=== PATIENT | male | born 1945 | race Caucasian/White ===

== ENCOUNTER 2023-04-13 07:15 | Outpatient (OUT) | payer MEDICARE, SELFPAY ==
[2023-04-13 07:37] LABS: Basophils Absolute Auto 0.1 10^3/uL (0.0-0.1); Basophils Percent Auto 0.9 % (0.2-2.0); Eosinophils Absolute Auto 0.3 10^3/uL (0.0-0.7); Hematocrit 41.4 % (42.0-54.0); Hemoglobin 13.2 g/dL (14.0-18.0); Immature Granulocytes Abs Auto 0.01 10^3/uL (0.00-0.03); Immature Granulocytes Pct Auto 0.2 % (0.0-0.5); Lymphocytes Absolute Auto 1.6 10^3/uL (1.2-3.8); Lymphocytes Percent Auto 28.2 % (20.5-60.0); Mean Corpuscular HGB Conc 31.9 g/dL (29.9-35.2); Mean Corpuscular Hemoglobin 30.1 pg (25.9-34.0); Mean Corpuscular Volume 94.3 fL (80.0-94.0); Mean Platelet Volume 9.6 fL (9.5-13.5); Monocytes Absolute Auto 0.6 10^3/uL (0.3-0.8); Monocytes Percent Auto 10.9 % (1.7-12.0); Neutrophils Absolute Auto 3.2 10^3/uL (1.4-6.5); Neutrophils Percent Auto 54.8 % (43.0-75.0); Platelet Count 241 10^3/uL (150-450); Red Blood Count 4.39 10^6/uL (4.70-6.10); Red Cell Distribution Width 13.2 % (11.0-15.0); White Blood Count 5.8 10^3/uL (4.0-11.0)
[2023-04-13 08:37] LABS: Alanine Aminotransferase 29 U/L (16-63); Albumin Globulin Ratio 1.1; Albumin Level 3.4 g/dL (3.4-5.0); Alkaline Phosphatase 71 U/L (46-116); Anion Gap 10.5; Aspartate Amino Transferase 24 U/L (15-37); BUN Creatinine Ratio 11.8; Bilirubin Total 0.7 mg/dL (0.2-1.0); Calcium 8.7 mg/dL (8.5-10.1); Carbon Dioxide 28.8 mmol/L (21.0-32.0); Chloride 106 mmol/L (98-107); Chol HDL Ratio 3.1; Cholesterol 147 mg/dL (<=200); Estimated GFR (African America >60 (>=60); Estimated GFR (Non-African Ame >60 (>=60); Globulin 3.2 g/dL; Glucose 90 mg/dL (74-106); HDL Cholesterol 48 mg/dL (40-60); LDL Cholesterol Calculated 85.4 mg/dL; Potassium 4.3 mmol/L (3.5-5.1); Sodium 141 mmol/L (136-145); Total Protein 6.6 g/dL (6.4-8.2); Triglycerides 68 mg/dL (<=150); VLDL CHOLESTEROL 13.6 mg/dL
[2023-04-14 08:10] LABS: PSA, Free 1.24 ng/mL; Prostate Specific Ag 4.3 ng/mL (0.0-4.0)
[2023-04-15 15:07] LABS: Immunoglobulin A, Qn, Serum 158 mg/dL (61-437); Immunoglobulin G, Qn, Serum 812 mg/dL (603-1613); Immunoglobulin M, Qn, Serum 53 mg/dL (15-143)
== END 2023-04-13 07:16 | disposition home or self-care (01) ==
LOC: LAB 07:15
PROVIDERS: PCP Internal Medicine; Visit Provider Internal Medicine
DX: E78.2 Mixed hyperlipidemia (principal); C80.1 Malignant (primary) neoplasm, unspecified; C79.51 Secondary malignant neoplasm of bone; M53.3 Sacrococcygeal disorders, not elsewhere classified; I50.22 Chronic systolic (congestive) heart failure
CPT/HCPCS: 36415; 80053; 80061; 82784; 84153; 84154; 85025; 86334

== ENCOUNTER 2023-04-30 07:36 | Outpatient (RCR) | payer MEDICARE, SELFPAY ==
[2023-04-16 16:06] LABS: Lactate Dehydrogenase 203 U/L (85-227)
[2023-04-17 19:07] LABS: Albumin 3.9 g/dL (2.9-4.4); Alpha-1-Globulin 0.2 g/dL (0.0-0.4); Alpha-2-Globulin 0.6 g/dL (0.4-1.0); Free Kappa Lt Chains,S 21.4 mg/L (3.3-19.4); Free Lambda Lt Chains,S 15.2 mg/L (5.7-26.3); Gamma Globulin 0.7 g/dL (0.4-1.8); Immunoglobulin A, Qn, Serum 157 mg/dL (61-437); Immunoglobulin G, Qn, Serum 788 mg/dL (603-1613); Immunoglobulin M, Qn, Serum 43 mg/dL (15-143); Kappa/Lambda Ratio,S 1.41 (0.26-1.65); Protein, Total 6.2 g/dL (6.0-8.5)
== END 2023-05-09 23:59 | disposition home or self-care (01) ==
LOC: INF 07:36
PROVIDERS: PCP Internal Medicine; Visit Provider Internal Medicine Hematology & Oncology
DX: S34.13 Other and unspecified injury to sacral spinal cord (principal); C41.4 Malignant neoplasm of pelvic bones, sacrum and coccyx; R97.20 Elevated prostate specific antigen [PSA]; M89.9 Disorder of bone, unspecified
CPT/HCPCS: 36415; 82784; 83521; 83615; 84155; 84165; 86334; G0463

== ENCOUNTER 2024-05-27 08:53 | Outpatient (OUT) | payer MEDICARE, SELFPAY ==
--- OUTSIDE RECORDS SUMMARY | 2024-05-27 08:59 | XMS_ITS | CCD ---
Author Organization [facility] Care Team Providers Care Pay Station Attendant Name Role Phone SHAIKH Gilmar BONILLA Admitting Unavailable SHAIKH Gilmar BONILLA Attending Unavailable SHAIKH BONILLA H Consulting Unavailable SHAIKH Gilmar BONILLA Admitting Unavailable SHAIKH Gilmar BONILLA Attending Unavailable SHAIKH BONILLA H Consulting Unavailable Nuvia Willis Unavailable Chad BLUM, Primary Care Provider [phone] MD Rohan Black Attending Provider MD Modesta Bonilla Primary Care Provider Shaik Bonilla MDh Primary Care Provider Chris Quinones MD Primary Care Provider [phone] Andreea HOPSON, Mary Unavailable Chad BLUM, Byers Primary Care Provider Andreea APPEALS COORDINATOR-Mary BRODERICK Primary Care Prov ider NESSA PANTOJA Referring Unavailable MARY DORAN Primary Care Unavaila ble Shaikh Bonilla Primary Care Unavailable Shobha Lawson Attending Unavailable Shobha Lawson Admitting Unavailable Andreea CRIMINAL JUSTICE PROGRAM DIRECTORMary Unavailable [phone] SHARLENE CHILDRESS Attending Unavailable SHAIKH BONILLA Attending Unavailable MARY DORAN Attending UnavailMARY Choudhary Attending UnavailROHAN Husain Attending Unavailable ROHAN BLACK Referring Unavailable SHAIKH BONILLA Primary Care Unavailable SHOBHA LAWSON Attending Unavailable ROHAN BLACK Referring Unavailable MARY DORAN Primary Care Unavailabl e Medications Current Medications Medication Drug Class(es) Dates Sig (Normalized) Sig (Original) aspirin 81 mg delayed release oral tablet (15 sources) Platelet Aggregation Inhibitor, Nonsteroidal Anti-inflammatory Drug Start: 04-25-2023 End: 07-24-2023 take 1 tablet by mouth once daily Aspirin 81 mg tablet,delayed release (DR/EC) Active 1 TAB PO Daily May 09, 2023 12:00am FreeTextSi tablet Orally Once a day; Note: Source Status: Taking; Provider: Alba Pedersen ( ) atorvastatin 40 mg oral tablet (17 sources) HMG-CoA Reductase Inhibitor Start: 04-25-2023 End: 09-23-2024 take 1 tablet by mouth once daily atorvastatin (Lipitor) 40 MG tablet Indications: Mixed hyperlipidemia (CMS/HCC) Take 1 tablet (40 mg) by mouth Daily 90 tablet 1 09/23/2023 Active carvedilol 25 mg oral tablet (18 sources) alpha-Adrenergic Timothy, beta-Adrenergic Timothy Start: 04-25-2023 End: 09-23-2024 take 1 tablet by mouth in the morning carvedilol (Coreg) 25 MG tablet Indications: Chronic bilateral low back pain with bilateral sciatica , Chronic systolic heart failure (CMS/HCC) , Cerebrovascular accident (CVA), unspecified mechanism (CMS/HCC) , Primary hypertension (CMS/HCC) Take 1 tablet (25 mg) by mouth in the morning and 1 tablet (25 mg) in the evening. Take with meals. 180 tablet 1 07/03/2023 Active End: 09-24-2023 take 0.5 tablet by mouth every twelve hours carvedilol (Coreg) 25 mg tablet Take 0.5 tablets (12.5 mg) by mouth every 12 hours. 09/24/2023 Discontinued (Dose adjustment) clopidogrel 75 mg oral tablet (15 sources) P2Y12 Platelet Inhibitor Start: 04-25-2023 End: 09-23-2024 take 1 tablet by mouth once daily Clopidogrel 75 mg tablet Active 1 TAB PO Daily May 09, 2023 12:00am FreeTextSi tablet Orally Once a day; Note: Source Status: Taking; Provider: Alba Pedersen ( ) lidocaine 0.05 mg/mg medicated patch (2 sources) Antiarrhythmic, Amide Local Anesthetic Start: 06-05-2022 Lidocaine 5 % 1 patch remove after 12 hours Externally Once a day for 15 days May, Active omeprazole 20 mg delayed release oral capsule (14 sources) Proton Pump Inhibitor Start: 10-09-2023 End: 10-03-2024 take 1 capsule by mouth before mealtime omeprazole (PriLOSEC) [address] capsule Indications: Gastroesophageal reflux disease without esophagitis Take 1 capsule (20 mg) by mouth in the morning. Take before meals. Do not crush or chew.. 90 capsule 1 04/06/2024 10/03/2024 Active Start: 04-25-2023 End: 07-24-2023 take 1 capsule by mouth before mealtime omeprazole (PriLOSEC) [address] capsule Indications: Gastroesophageal reflux disease without esophagitis Take 1 capsule (20 mg) by mouth in the morning. Take before meals. Do not crush or chew.. 90 capsule 0 04/25/2023 07/24/2023 Active pregabalin 150 mg oral capsule (18 sources) Start: 02-19-2024 End: 02-18-2025 take 1 capsule by mouth in the morning pregabalin (Lyrica) 150 MG capsule Indications: Polyneuropathy Take 1 capsule (150 mg) by mouth in the morning and 1 capsule (150 mg) before bedtime. 60 capsule 2 02/19/2024 02/18/2025 Active Start: 04-18-2023 End: 02-12-2024 take 1 capsule by mouth in the morning pregabalin (Lyrica) 150 MG capsule Indications: Chronic bilateral low back pain with bilateral sciatica Take 1 capsule (150 mg) by mouth in the morning and 1 capsule (150 mg) before bedtime. 60 capsule 2 10/07/2023 02/12/2024 Discontinued (Med list cleanup) End: 02-28-2024 take 1 capsule by mouth three times daily pregabalin (Lyrica) 100 mg capsule Take 1 capsule (100 mg) by mouth 3 times a day. 02/28/2024 Discontinued (Therapy completed) End: 09-24-2023 take 1 capsule by mouth twice daily pregabalin (Lyrica) 150 mg capsule Take 1 capsule (150 mg) by mouth 2 times a day. 09/24/2023 Discontinued (Dose adjustment) sacubitril 24 mg / valsartan 26 mg oral tablet (17 sources) Angiotensin 2 Receptor Timothy Start: 05-09-2023 take 1 tablet by mouth twice daily Sacubitril-Valsartan 24-26 mg tablet Active 1 TAB PO Twice daily May 09, 2023 12:00am Start: 04-25-2023 End: 07-24-2023 take 1 tablet by mouth in the morning sacubitril-valsartan (Entresto) 49-51 MG tablet Indications: Chronic systolic heart failure (CMS/HCC) Take 1 tablet by mouth in the morning and 1 tablet before bedtime. 180 tablet 04/25/2023 Active take 1 tablet by fernando th twice daily sacubitriL-valsartan (Entresto) 49-51 mg tablet Take 1 tablet by mouth 2 times a day. Active End: 09-24-2023 take 1 tablet by mouth once daily sacubitriL-valsartan (Entresto) 49-51 mg tablet Take 1 tablet by mouth once daily. 09/24/2023 Discontinued (Dose adjustment) take 1 tablet by fernando th twice daily Sacubitril-Valsartan 49-51 MG 1 tablet Orally Twice a day Active Completed/Discontinued Medications Medication Drug Class(es) Dates Sig (Normalized) Sig (Original) gabapentin 100 mg oral capsule (6 sources) Anti-epileptic Agent Start: 02-12-2024 End: 02-19-2024 take 2 capsules by mouth in the morning gabapentin (Neurontin) 100 MG capsule Indications: Chronic bilateral low back pain with bilateral sciatica Take 2 capsules (200 mg) by mouth in the morning and 2 capsules (200 mg) before bedtime. 360 capsule 02/12/2024 02/19/2024 Discontinued (Ineffective) End: 02-12-2024 take 1 capsule by mouth three times daily gabapentin (Neurontin) 100 mg capsule Take 1 capsule (100 mg) by mouth 3 times a day. Active Problems Active Problems Problem Classification Problem Date Documented Date Episodic/Chronic Acute cerebrovascular disease (10 sources) Cerebrovascular accident; Translations: [Cerebral infarction, unspecified] Onset: 09-26-2018 04-02-2023 Chronic Conduction disorders (17 sources) Automatic implantable cardiac defibrillator in situ; Translations: [Presence of automatic (implantable) cardiac defibrillator] Onset: 01-21-2019 04-02-2023 Chronic Congestive heart failure; nonhypertensive (20 sources) Chronic systolic heart failure; Translations: [Chronic systolic (congestive) heart failure] Onset: 03-19-2023 03-19-2023 Chronic Coronary atherosclerosis and other heart disease (20 sources) Coronary arteriosclerosis; Translations: [Atherosclerotic heart disease of [place] coronary artery without angina pectoris] Onset: 03-19-2023 03-19-2023 Chronic Disorders of lipid metabolism (20 sources) Mixed hyperlipidemia; Translations: [Mixed hyperlipidemia] Onset: 03-19-2023 03-19-2023 Chronic Esophageal disorders (2 sources) Gastroesophageal reflux disease without esophagitis; Translations: [Gastro-esophageal reflux disease without esophagitis] 04-25-2023 Chronic Essential hypertension (12 sources) Hypertensive disorder; Translations: [Essential (primary) hypertension] Onset: 04-02-2023 04-02-2023 Chronic Occlusion or stenosis of precerebral arteries (9 sources) Bilateral stenosis of carotid arteries; Translations: [Occlusion and stenosis of bilateral carotid arteries] Onset: 01-21-2019 04-02-2023 Chronic Other nervous system disorders (2 sources) Idiopathic peripheral neuropathy; Translations: [Hereditary and idiopathic neuropathy, unspecified] Chronic Other nervous system disorders (8 sources) Polyneuropathy; Translations: [Polyneuropathy, unspecified] Onset: 02-12-2024 02-12-2024 Chronic Other nutritional; endocrine; and metabolic disorders (4 sources) Overweight in adulthood with body mass index of 25 or more but less than 30; Translations: [Body mass index (BMI) 27.0-27.9, adult] Onset: 09-24-2023 09-24-2023 Episodic Other screening for suspected conditions (not mental disorders or infectious disease) (11 sources) Raised prostate specific antigen; Translations: [Elevated prostate specific antigen [PSA]] Onset: 04-17-2023 04-17-2023 Episodic Pulmonary heart disease (1 source) Pulmonary hypertension; Translations: [Pulmonary hypertension, unspecified] Onset: 05-14-2024 05-14-2024 Chronic Substance-related disorders (7 sources) Smoker; Translations: [Nicotine dependence, unspecified, uncomplicated] Onset: 09-24-2023 09-24-2023 Chronic Unclassified (1 source) Low back pain, unspecified; Translations: [Low back pain, unspecified] Onset: 09-24-2018 Past or Other Problems Problem Classification Problem Date Documented Da te Episodic/Chronic Coronary atherosclerosis and other heart disease (2 sources) Presence of aortocoronary bypass graft; Translations: [Presence of aortocoronary bypass graft] Onset: 03-19-2023 Episodic Mood disorders (9 sources) Mood disorders Onset: 04-02-2023 04-02-2023 Other diseases of kidney and ureters (9 sources) Cyst of kidney; Translations: [Cyst of kidney, acquired] Onset: 02-01-2020 04-02-2023 Episodic Other nutritional; endocrine; and metabolic disorders (2 sources) Body mass index (BMI) 27.0-27.9, adult; Translations: [Body mass index (BMI) 27.0-27.9, adult] Onset: 09-24-2023 Episodic Spondylosis; intervertebral disc disorders; other back problems (20 sources) Ankylosis of sacroiliac joint; Translations: [Sacrococcygeal disorders, not elsewhere classified] Onset: 04-02-2023 04-17-2023 Episodic Unclassified (3 sources) Onset: 03-19-2023 Resolved: 09-24-2023 03-19-2023 Results Test Name Value Interpretation Reference Range Facil ity ECG 12 [place] 02-28-2024 [facility] Work Phone: ECG 12 [place] 03-19-2023 Normal sinus rhythm Ventricular paced rhythm Ventricular pacing creates conduction artifact. QTc 416 ms [facility] Work Phone: URINE T PROTEIN CREAT RATIOo n 03-29-2022 Protein (U) [Mass/Vol] 24.9 mg/dL Critically high <=12.0 [facility] Comment on above: Performed By: #### U RTPCR #### [facility] [address] [address] [address] Hamlet Sun UR PROT CREAT RAT 0.19 Normal [facility] Comment on above: Performed By: #### U RTPCR #### [facility] [address] [address] [address] Hamlet Sun URINE CREAT 132.48 mg/dL Normal 20.00-300.00 [facility] Comment on above: Performed By: #### U RTPCR #### [facility] [address] [address] [address] Hamlet Sun CBC AUTO DIFFon 03-28-2022 BASO # 0.0 103/ul Normal 0.0-0.1 [facility] Comment on above: Performed By: #### C BC #### [facility] [address] [address] [address] Hamlet Sun Basophils/100 WBC (Bld) 0.8 % Normal 0.2-2.0 [facility] Comment on above: Performed By: #### C BC #### [facility] [address] [place] [address] Dr. Hamlet Sun EO # 0.2 103/ul Normal 0.0-0.7 [facility] Comment on above: Performed By: #### C BC #### [facility] [address] [address] [address] Hamlet Sun Eosinophils/100 WBC (Bld) 4.3 % Normal 0.9-7.0 [facility] Comment on above: Performed By: #### C BC #### [facility] [address] [address] [address] Hamlet Sun Erythrocyte distribution width (RBC) [Ratio] 13.9 % Normal 11.0-15.0 [facility] Comment on above: Performed By: #### C BC #### [facility] [address] [address] [address] Hamlet Sun Hematocrit (Bld) [Volume fraction] 39.5 % Critically low 42.0-54.0 [facility] Comment on above: Performed By: #### C BC #### [facility] [address] [place] [address] Dr. Hamlet Sun Hemoglobin (Bld) [Mass/Vol] 12.7 g/dL Critically low 14.0-18.0 [facility] Comment on above: Performed By: #### C BC #### [facility] [address] [place] [address] Dr. Hamlet Sun IG # 0.01 10e3/ul Normal 0.00-0.03 [facility] Comment on above: Performed By: #### C BC #### [facility] [address] [place] [address] Dr. Hamlet Sun IG % 0.2 % Normal 0.0-0.5 [facility] Comment on above: Performed By: #### C BC #### [facility] [address] [place] [address] Dr. Hamlet Sun LYMPH # 1.2 103/ul Normal 1.2-3.8 [facility] Comment on above: Performed By: #### C BC #### [facility] [address] [place] [address] Dr. Hamlet Sun Lymphocytes/100 WBC (Bld) 22.8 % Normal 20.5-60.0 [facility] Comment on above: Performed By: #### C BC #### [facility] [address] [place] [address] Dr. Hamlet Sun MANUAL DIFF REQ NO Normal [facility] Comment on above: Performed By: #### C BC #### [facility] [address] [place] [address] Dr. Hamlet Sun MCH (RBC) [Entitic mass] 28.9 pg Normal 25.9-34.0 [facility] Comment on above: Performed By: #### C BC #### [facility] [address] [place] [address] Dr. Hamlet Sun MCHC (RBC) [Mass/Vol] 32.2 g/dL Normal 29.9-35.2 [facility] Comment on above: Performed By: #### C BC #### [facility] [address] [place] [address] Dr. Hamlet Sun MCV (RBC) [Entitic vol] 90.0 fL Normal 80.0-94.0 [facility] Comment on above: Performed By: #### C BC #### [facility] [address] [address] [address] Hamlet Sun MONO # 0.5 103/ul Normal 0.3-0.8 [facility] Comment on above: Performed By: #### C BC #### [facility] [address] [address] [address] Hamlet Sun Monocytes/100 WBC (Bld) 9.8 % Normal 1.7-12.0 [facility] Comment on above: Performed By: #### C BC #### [facility] [address] [place] [address] Dr. Hamlet Sun NEUT # 3.3 103/ul Normal 1.4-6.5 [facility] Comment on above: Performed By: #### C BC #### [facility] [address] [place] [address] Dr. Hamlet Sun Neutrophils/100 WBC (Bld) 62.1 % Normal 43.0-75.0 [facility] Comment on above: Performed By: #### C BC #### [facility] [address] [place] [address] Dr. Hamlet Sun Platelet mean volume (Bld) [Entitic vol] 9.2 fL Critically low 9.5-13.5 [facility] Comment on above: Performed By: #### C BC #### [facility] [address] [place] [address] Dr. Hamlet Sun PLT 281 103/ul Normal 150-450 [facility] Comment on above: Performed By: #### C BC #### [facility] [address] [place] [address] Dr. Hamlet Sun RBC 4.39 106/ul Critically low 4.70-6.[address] [facility] Comment on above: Performed By: #### C BC #### [facility] [address] [place] [address] Dr. Hamlet Sun WBC 5.3 103/ul Normal 4.0-11.0 [facility] Comment on above: Performed By: #### C BC #### [facility] [address] [address] [address] Hamlet Sun LIPID PROFILEon 03-28-2022 CHOL-HDL RATIO NORM SEE BELOW Normal [facility] Comment on above: Result Comment: 3.3 - 4.4 LOW RISK 4.4 - 7.1 AVERAGE RISK 7.1 - 11.0 MODERATE RISK >11.0 HIGH RISK Performed By: #### C MP, LIPID #### [facility] [address] [address] [address] Hamlet Sun Cholesterol [Mass/Vol] 138 mg/dL Normal <=200 [facility] Comment on above: Performed By: #### C MP, LIPID #### [facility] [address] [address] [address] Hamlet Sun Cholesterol in HDL [Mass/Vol] 44 mg/dL Normal 40-60 [facility] Comment on above: Performed By: #### C MP, LIPID #### [facility] [address] [address] [address] Hamlet Sun Cholesterol in LDL [Mass/Vol] 75.0 mg/dL Normal [facility] Comment on above: Performed By: #### C MP, LIPID #### [facility] [address] [address] [address] Hamlet Sun Cholesterol.total/ Cholesterol in HDL [Mass ratio] 3.1 {ratio} Normal [facility] Comment on above: Performed By: #### C MP, LIPID #### [facility] [address] [address] [address] Hamlet Sun HDL NORMAL > or = 60 mg/dl - LOW CARDIOVASCULAR RISK <40 mg/dl - HIGH CARDIOVASCULAR RISK Normal [facility] Comment on above: Performed By: #### C MP, LIPID #### [facility] [address] [address] [address] Hamlet Sun LDL CALC NORMAL SEE BELOW Normal [facility] Comment on above: Result Comment: <100 mg/dl OPTIMAL 100 - 129 mg/dl NEAR OR ABOVE OPTIMAL 130 - 159 mg/dl BORDERLINE HIGH 160 - 189 mg/dl HIGH >190 mg/dl VERY HIGH Performed By: #### C MP, LIPID #### [facility] [address] [place] [address] Dr. Hamlet Sun Triglyceride [Mass/Vol] 94 mg/dL Normal <=150 [facility] Comment on above: Performed By: #### C MP, LIPID #### [facility] [address] [place] [address] Dr. Hamlet Sun VLDL CALC 18.8 mg/dL Normal [facility] Comment on above: Performed By: #### C MP, LIPID #### [facility] [address] [place] [address] Dr. Hamlet Sun PROF 14(COMP METB)on 023 Albumin [Mass/Vol] 3.5 g/dL Normal 3.4-5.0 [facility] Comment on above: Performed By: #### C MP, LIPID #### [facility] [address] [place] [address] Dr. Hamlet Sun Albumin/Globulin [Mass ratio] 1.2 {ratio} Normal [facility] Comment on above: Performed By: #### C MP, LIPID #### [facility] [address] [place] [address] Dr. Hamlet Sun ALP [Catalytic activity/Vol] 88 U/L Normal 46-116 [facility] Comment on above: Performed By: #### C MP, LIPID #### [facility] [address] [place] [address] Dr. Hamlet Sun ALT [Catalytic activity/Vol] 27 U/L Normal 16-63 [facility] Comment on above: Performed By: #### C MP, LIPID #### [facility] [address] [place] [address] Dr. Hamlet Sun Anion gap [Moles/Vol] 11.5 mmol/L Normal [facility] Comment on above: Performed By: #### C MP, LIPID #### [facility] [address] [place] [address] Dr. Hamlet Sun AST [Catalytic activity/Vol] 26 U/L Normal 15-37 [facility] Comment on above: Performed By: #### C MP, LIPID #### [facility] [address] [place] [address] Dr. Hamlet Sun Bilirubin [Mass/Vol] 0.7 mg/dL Normal 0.2-1.0 [facility] Comment on above: Performed By: #### C MP, LIPID #### [facility] [address] [place] [address] Dr. Hamlet Sun Calcium [Mass/Vol] 8.5 mg/dL Normal 8.5-10.1 [facility] Comment on above: Performed By: #### C MP, LIPID #### [facility] [address] [place] [address] Dr. Hamlet Sun Chloride [Moles/Vol] 106 mmol/L Normal 98-107 [facility] Comment on above: Performed By: #### C MP, LIPID #### [facility] [address] [place] [address] Dr. Hamlet Sun CO2 [Moles/Vol] 26.3 mmol/L Normal 21.0-32.0 [facility] Comment on above: Performed By: #### C MP, LIPID #### [facility] [address] [place] [address] Dr. Hamlet Sun Creatinine [Mass/Vol] 0.97 mg/dL Normal 0.70-1.30 [facility] Comment on above: Performed By: #### C MP, LIPID #### [facility] [address] [place] [address] Dr. Hamlet Sun EGFR-AF SUDANESE >60 Normal >=[address] [facility] Comment on above: Performed By: #### C MP, LIPID #### [facility] [address] [place] [address] Dr. Hamlet Sun EGFR-NON AF SUDANESE >60 Normal >=60 [facility] Comment on above: Performed By: #### C MP, LIPID #### [facility] [address] [place] [address] Dr. Hamlet Sun Globulin (S) [Mass/Vol] 2.9 g/dL Normal [facility] Comment on above: Performed By: #### C MP, LIPID #### [facility] [address] [place] [address] Dr. Hamlet Sun Glucose [Mass/Vol] 98 mg/dL Normal 74-106 [facility] Comment on above: Performed By: #### C MP, LIPID #### [facility] [address] [place] [address] Dr. Hamlet Sun Potassium [Moles/Vol] 4.5 mmol/L Normal 3.5-5.1 [facility] Comment on above: Performed By: #### C MP, LIPID #### [facility] [address] [place] [address] Dr. Hamlet Sun Protein [Mass/Vol] 6.4 g/dL Normal 6.4-8.2 [facility] Comment on above: Performed By: #### C MP, LIPID #### [facility] [address] [place] [address] Dr. Hamlet Sun Sodium [Moles/Vol] 139 mmol/L Normal 136-145 [facility] Comment on above: Performed By: #### C MP, LIPID #### [facility] [address] [place] [address] Dr. Hamlet Sun Urea nitrogen [Mass/Vol] 13.0 mg/dL Normal 7.0-18.0 [facility] Comment on above: Performed By: #### C MP, LIPID #### [facility] [address] [place] [address] Dr. Hamlet Sun Urea nitrogen/Creatinin e [Mass ratio] 13.4 mg/mg Normal [facility] Comment on above: Performed By: #### C MP, LIPID #### [facility] [address] [place] [address] Dr. Hamlet Sun Vital Signs Date Time Vital Sign Value Performing Clinician Cory salvador 02-28-2024 10:35-0500 Body height 160 cm Shobha Lawson MD Work Phone: [facility] 02-28-2024 10:35-0500 Body mass index (BMI) [Ratio] 28.41 kg/m2 Shobha Lawson MD Work Phone: [facility] 02-28-2024 10:35-0500 Body weight 72.76 kg Shobha Lawson MD Work Phone: [facility] 02-28-2024 10:35-0500 Diastolic blood pressure 82 mm[Hg] Shobha Lawson MD Work Phone: [facility] 02-28-2024 10:35-0500 Heart rate 57 /min Shobha Lawson MD Work Phone: [facility] 02-28-2024 10:35-0500 Systolic blood pressure 144 mm[Hg] Shobha Lawson MD Work Phone: [facility] 02-12-2024 13:06-0500 Body height 162.6 cm Mary Doran CRIMINAL JUSTICE PROGRAM DIRECTOR Work Phone: [facility] 02-12-2024 13:06-0500 Body mass index (BMI) [Ratio] 26.91 kg/m2 Mary Doran CRIMINAL JUSTICE PROGRAM DIRECTOR Work Phone: [facility] 02-12-2024 13:06-0500 Body temperature 96.4 [degF] Mary Doran CRIMINAL JUSTICE PROGRAM DIRECTOR Work Phone: [facility] 02-12-2024 13:06-0500 Body weight 71.12 kg Mary Doran CRIMINAL JUSTICE PROGRAM DIRECTOR Work Phone: [facility] 02-12-2024 13:06-0500 Diastolic blood pressure 62 mm[Hg] Mary Doran CRIMINAL JUSTICE PROGRAM DIRECTOR Work Phone: [facility] 02-12-2024 13:06-0500 Heart rate 59 /min Mary Doran CRIMINAL JUSTICE PROGRAM DIRECTOR Work Phone: [facility] 02-12-2024 13:06-0500 Respiratory rate 16 /min Mary Doran CRIMINAL JUSTICE PROGRAM DIRECTOR Work Phone: [facility] 02-12-2024 13:06-0500 SaO2% (BldA) [Mass fraction] 95 % Mary Doran CRIMINAL JUSTICE PROGRAM DIRECTOR Work Phone: [facility] 02-12-2024 13:06-0500 Systolic blood pressure 118 mm[Hg] Mary Doran CRIMINAL JUSTICE PROGRAM DIRECTOR Work Phone: [facility] 09-24-2023 10:19-0400 Body height 160 cm Rohan Black MD Work Phone: [facility] 09-24-2023 10:19-0400 Body mass index (BMI) [Ratio] 27.46 kg/m2 Rohan Black MD Work Phone: [facility] 09-24-2023 10:19-0400 Body weight 70.31 kg Rohan Black MD Work Phone: [facility] 09-24-2023 10:19-0400 Diastolic blood pressure 84 mm[Hg] Rohan Black MD Work Phone: [facility] 09-24-2023 10:19-0400 Heart rate 60 /min Rohan Black MD Work Phone: [facility] 09-24-2023 10:19-0400 Systolic blood pressure 142 mm[Hg] Rohan Black MD Work Phone: [facility] 03-19-2023 08:38-0500 Body height 160 cm Rohan Black MD Work Phone: [facility] 03-19-2023 08:38-0500 Body mass index (BMI) [Ratio] 29.23 kg/m2 Rohan Black MD Work Phone: [facility] 03-19-2023 08:38-0500 Body weight 74.84 kg Rohan Black MD Work Phone: [facility] 03-19-2023 08:38-0500 Diastolic blood pressure 82 mm[Hg] Rohan Black MD Work Phone: [facility] 03-19-2023 08:38-0500 Heart rate 53 /min Rohan Black MD Work Phone: [facility] 03-19-2023 08:38-0500 Systolic blood pressure 140 mm[Hg] Rohan Black MD Work Phone: [facility] Encounters Encounter Date Encounter Type Care Provider Facility Start: 05-14-2024 End: 05-14-2024 Bamboo flowsheet Sharlene Childress CRIMINAL JUSTICE PROGRAM DIRECTOR Work Phone: [facility] Start: 05-14-2024 End: 05-14-2024 Bamboo flowsheet Sharlene Childress CRIMINAL JUSTICE PROGRAM DIRECTOR Work Phone: [facility] Start: 05-14-2024 End: 05-14-2024 ambulatory SHARLENE CHILDRESS Not Available Start: 04-10-2024 End: 04-10-2024 ambulatory Shaikh Chad Facility:[facility] Start: 04-10-2024 Non-patient / Non-visit [facility] Start: 04-06-2024 End: 04-06-2024 Refill Mary Doran CRIMINAL JUSTICE PROGRAM DIRECTOR Work Phone: [facility] Comment on above: Gastroesophageal ref lux disease without esophagitis Start: 03-19-2024 End: 03-19-2024 ambulatory NESSA E [facility] Start: 02-28-2024 End: 02-28-2024 Office outpatient visit 25 minutes Shobha Lawson MD Work Phone: [facility] Comment on above: Multiple vessel jem nary artery disease (Primary Dx); Cardiomyopathy, ischemic; Mixed hyperlipidemia; ICD (implantable cardioverter-defibrillator) in place; Hx of CABG; Chronic systolic heart failure; BMI 27.0-27.9,adult; Smoker Start: 02-28-2024 End: 02-28-2024 [facility] Start: 02-19-2024 End: 02-19-2024 Orders Only Mary Doran CRIMINAL JUSTICE PROGRAM DIRECTOR Work Phone: [facility] Comment on above: Polyneuropathy (Prim dorene Dx); Chronic bilateral low back pain with bilateral sciatica Start: 02-12-2024 End: 02-12-2024 Bamboo flowsheet Mary Ricktrick CRIMINAL JUSTICE PROGRAM DIRECTOR Work Phone: [facility] Start: 02-12-2024 End: 02-12-2024 Bamboo flowsheet Mary Ricktrick CRIMINAL JUSTICE PROGRAM DIRECTOR Work Phone: [facility] Start: 02-12-2024 End: 02-12-2024 ambulatory MARY DORAN Not Available Start: 02-12-2024 End: 02-12-2024 Office outpatient visit 15 minutes Maryashley Bernalk CRIMINAL JUSTICE PROGRAM DIRECTOR Work Phone: [facility] Comment on above: Mixed hyperlipidemia (CMS/HCC) (Primary Dx); Primary hypertension (CMS/HCC); Chronic bilateral low back pain with bilateral sciatica; Polyneuropathy Start: 10-16-2023 End: 10-16-2023 ambulatory MARY RICKTRICK Not Available Start: 09-24-2023 End: 09-24-2023 Office outpatient visit 25 minutes Rohan Black MD Work Phone: [facility] Comment on above: Coronary artery dise ase involving [place] river coronary artery of [place] heart without angina pectoris; Hx of CABG; Cardiomyopathy, ischemic; Chronic systolic heart failure (Multi); BMI 27.0-27.9,adult; Smoker; ICD (implantable cardioverter-defibrillator) in place; Mixed hyperlipidemia Start: 09-24-2023 End: 09-24-2023 ambulatory ROHAN BLACK [facility] Ambulatory Start: 07-03-2023 End: 07-03-2023 ambulatory SHAIKH CHAD Not Available Start: 04-25-2023 Orders Only Shaikh Chad BLUM Work Phone: [facility] Comment on above: Chronic systolic hea rt failure (CMS/HCC) (Primary Dx); Chronic bilateral low back pain with bilateral sciatica; Cerebrovascular accident (CVA), unspecified mechanism (CMS/HCC); Mixed hyperlipidemia (CMS/HCC); Primary hypertension (CMS/HCC); Gastroesophageal reflux disease without esophagitis Start: 04-18-2023 Orders Only Shaikh Chad BLUM Work Phone: [facility] Comment on above: Chronic bilateral lo w back pain with bilateral sciatica (Primary Dx) Start: 04-17-2023 Orders Only Shaikh Chad BLUM Work Phone: [facility] Comment on above: Sacral lesion (Prima ry Dx); Elevated PSA measurement Start: 04-02-2023 End: 04-02-2023 ambulatory [facility] Other [employer] [facility] [place] Other Start: 04-02-2023 Patient encounter procedure Shaikh Chad BLUM Work Phone: [facility] Start: 04-02-2023 Telephone encounter [facility] Start: 03-22-2023 End: 03-22-2023 ambulatory MD Shaikh Bonilla Work Phone: [facility] Work Phone: Start: 03-22-2023 End: 03-22-2023 Patient encounter procedure MD Shaikh Bonilla Work Phone: [facility] Start: 03-19-2023 End: 03-19-2023 Office outpatient new 45 minutes Rohan Black MD Work Phone: [facility] Comment on above: Coronary artery dise ase involving [place] coronary artery of [place] heart without angina pectoris (Primary Dx); Hx of CABG; Cardiomyopathy, ischemic; Chronic systolic heart failure (CMS/HCC); Mixed hyperlipidemia Start: 06-27-2022 End: 06-27-2022 ambulatory [employer] Other [employer] Other Start: 06-27-2022 Telephone encounter [facility] Start: 03-29-2022 End: 03-29-2022 ambulatory SHAIKH Gilmar BONILLA Facility:[facility] Start: 03-28-2022 End: 03-29-2022 ambulatory SHAIKH Gilmar BONILLA Facility:[facility] Procedures Date Procedure Procedure Detail Performing Clinician Start: 02-28-2024 Ecg routine ecg w/le ast 12 lds w/i&r Shobha Lawson MD Work Phone: Start: 03-19-2023 History of coronary artery bypass grafting Hx of CABG Rohan Black MD Work Phone: Start: 03-19-2023 Ecg routine ecg w/le ast 12 lds w/i&r Rohan Black MD Work Phone: History of coronary artery bypass grafting Hx of CABG Rohan Black MD Work Phone: History of coronary artery bypass grafting Hx of CABG Shobha Lawson MD Work Phone: Plan of Treatment Date Care Activity Detail Author Start: 12-04-2024 End: 12-04-2024 Patient encounter procedure 12/04/2024 10:30 AM EDT Office Visit [facility] [address] [facility] [address] [place] [phone] Shobha Lawson MD [address] [facility] [place] [address] [facility] Start: 05-14-2024 End: 05-14-2024 Patient encounter procedure [facility] Comment on above: Medicare annual well ness visit, subsequent (Primary Dx); Pulmonary hypertension, unspecified (CMS/HCC); Polyneuropathy; Arteriosclerosis of coronary artery (CMS/HCC); Coronary artery disease involving [place] coronary artery of [place] heart without angina pectoris (CMS/HCC); Chronic systolic heart failure (CMS/HCC); Primary hypertension (CMS/HCC); Chronic bilateral low back pain with bilateral sciatica; Cigarette nicotine dependence without complication; Mixed hyperlipidemia (CMS/HCC); Screening for prostate cancer Start: 04-08-2024 Influenza vaccination Influenza Vacc ine (#1) [facility] Comment on above: Postponed from 11/09 (Patient Refused) Start: 04-02-2024 Medicare Annual Well ness (AWV) Medicare Annual Wellness (AWV) [facility] Start: 02-28-2024 End: 02-28-2024 Patient encounter procedure 02/28/2024 10:40 AM EST Office Visit [address] [phone] Shobha Lawson MD [address] [facility] [address] [place] [address] [facility] Start: 11-10-2023 COVID-19 Vaccine ( season) COVID-19 Vaccine ( season) [facility] Start: 11-10-2023 Influenza vaccination Influenza Vacc ine (#1) [facility] Start: 09-24-2023 End: 09-24-2023 Patient encounter procedure 09/24/2023 10:40 AM EDT Office Visit [address] [phone] Rohan Black MD [address] [facility] [address] [place] [address] [facility] Start: 07-02-2023 End: 07-02-2023 Patient encounter procedure 07/02/2023 9:45 AM EDT Office Visit [facility] [address] [place] [address] Shaikh Bonilla MD [address] [place] [id number] [facility] Start: 01-17-2023 Echocardiography Echocardiogram [facility] Start: 11-09-2022 COVID-19 Vaccine ( season) COVID-19 Vaccine ( season) [facility] Start: 11-09-2022 Influenza vaccination Influenza Vacc ine (#1) [facility] Start: 2021 RSV High Risk: (Elde rly (60+) or Population) (1 - 1-dose 75+ series) RSV High Risk: (Elderly (60+) or Population) (1 - 1-dose 75+ series) [facility] Start: 04-11-2021 COVID-19 Vaccine (2 - Pfizer series) COVID-19 Vaccine (2 - Pfizer series) [facility] Start: 03-20-2017 Pneumococcal vaccination Pneum ococcal Vaccine (2 of 2 - PCV) [facility] Start: 03-20-2017 Pneumococcal Vaccine : 65+ Years (2 - PCV) Pneumococcal Vaccine: 65+ Years (2 - PCV) [facility] Start: 03-20-2017 Pneumococcal Vaccine : 65+ Years (2 of 2 - PCV) Pneumococcal Vaccine: 65+ Years (2 of 2 - PCV) [facility] Start: 2006 RSV patient s and/or patients aged 60+ years (1 - 1-dose 60+ series) RSV patients and/or patients aged 60+ years (1 - 1-dose 60+ series) [facility] Start: 1996 Zoster Vaccines (1 of 2) Zoste r Vaccines (1 of 2) [facility] Start: 1968 DTaP/Tdap/Td Vaccine s (1 - Tdap) DTaP/Tdap/Td Vaccines (1 - Tdap) [facility] Start: 1964 Diabetes mellitus screening Diabetes Screening [facility] Start: 1964 Hepatitis C screening Hepatitis C Sc [facility] Start: 1952 Pneumococcal Vaccine : 65+ Years (1 - PCV) Pneumococcal Vaccine: 65+ Years (1 - PCV) [facility] Start: 1952 Pneumococcal Vaccine : 65+ Years (1 of 2 - PCV) Pneumococcal Vaccine: 65+ Years (1 of 2 - PCV) [facility] Start: 1946 Creatinine measurement Creatinine Le vipin [facility] Start: 1946 Lipid panel Lipid Panel [facility] Start: 1946 Potassium measurement Potassium Leve l [facility] Start: 1946 Yearly Adult Physical Yearly Adult P hysical [facility] Payers Date Payer Category Payer Medicare (Managed Care) [employer] [place] [employer] [id number] 2024 Self-pay [id number] 2024 Medicare [id number] 2023 Medicaid A[employer]NA MEDICARE A DVANTAGE [id number] 2023 Medicare AETNA MEDICARE A DVANTAGE AETNA MEDICARE REPLACEMENT [id number] 2023-Present [address] [place] [address] [id number] 2023 Medicare [id number] 2022 Unknown [id number] 2005 [employer] [facility] [id number] 2005 Unknown [id number] 2005 Unknown [id number] 18 1959 Medicare [id number] 1946 Unknown [id number] 1946 Unknown [id number] 1946 Unknown [id number] 1946 Unknown [id number] 1946 Unknown [id number] 1946 Unknown [id number] 1946 Unknown [id number] 1946 Unknown [id number] 1946 Unknown [id number] Medicare Medicare [id number] Medicare Medicare [id number] Unknown [id number] Social History Date Type Detail Facility Start: 03-19-2023 End: 04-02-2023 Sex Assigned At [employer] Other Start: 03-19-2023 Tobacco smoking status NHIS Smokes tobacco daily [facility] Work Phone: History of tobacco use [facility]: Start: 03-19-2023 Tobacco use and exposure Smokeless tobacco non-user [facility] Work Phone: Start: 03-19-2023 End: 09-24-2023 Alcohol intake Current drinker of alcohol (finding) [facility] Work Phone: Start: 03-19-2023 End: 04-02-2023 History of Social function [facility] Work Phone: Start: 03-19-2023 Alcohol Comment once a year maybe [facility] Work Phone: Start: 1945 Sex Assigned At Not on file [facility] Work Phone: Start: 03-09-2023 End: 02-28-2024 Exposure to SARS-CoV-2 (event) Not sure [facility] Start: 1945 Sex Assigned At Male [facility] Start: 03-29-2023 End: 10-16-2023 Tobacco smoking status SDIS Occasional tobacco smoker [facility] History of tobacco use Cigarette Smoker [facility] Start: 04-02-2023 End: 02-12-2024 Alcohol intake Ex-drinker (finding) [facility] Within the last year , have you been afraid of your partner or ex-partner? No [facility] Do you belong to any clubs or organizations such as jainism groups, unions, fraternal or athletic groups, or school groups? Yes [facility] Are you now , , , , never or living with a partner? [facility] Frequency of Alcohol Consumption Not on file [facility] How often do you hav e 6 or more drinks on 1 occasion? Never [facility] How hard is it for y ou to pay for the very basics like food, housing, medical care, and heating Somewhat hard [facility] Do you feel stress - tense, restless, nervous, or anxious, or unable to sleep at night because your mind is troubled all the time - these days [OSQ] Not at all [facility] (I/We) worried wheth er (my/our) food would run out before (I/we) got money to buy more. Never true [facility] History of tobacco use Passive smoker [facility] if ever smoked [facility] Work Phone: Start: 04-11-2024 Sex Male (finding) [facility] Clinical Notes 03-19-2023 to 02-28-2024 Shobha Lawson MD - 02/28/2024 10:40 AM ESTPatient Kathy Doran NP - 02/12/2024 2:28 PM Ashia Doran NP - 02/12/2024 1:22 PM ESTPatient Instructions Note Date & Type Note Facility 02-28-2024 Note Normal sinus rhythm with poor R wave progression in the anterior lead to possible old anteroseptal infarct with nonspecific ST-T changes [facility] Work Phone: 02-28-2024 History of Present illness Narrative Subjective Akil Gonzales is a 78 y.o. male Chief Complaint Follow-up HPI The patient is here for follow-up continue management for coronary artery disease, ischemic cardiomyopathy, prior bypass surgery and status post AICD implantation. He is a former patient of Dr. Black. He reports he underwent bypass surgery back in 2005 according to previous note it include CARLSON to the LAD, radial graft to diagonal and ramus in sequential fashion and saphenous vein graft to the obtuse marginal and another saphenous vein graft to the PDA he apparently had also a PCI of the CARLSON to the LAD subsequently. Over the last few years he has been stable without complaint of chest pain, palpitation, lightheadedness, dizziness or syncope. His last device check was earlier this year. His echocardiogram previously showed ejection fraction around 35-40%. Patient denies complaint of chest pain, palpitation, lightheadedness, dizziness or syncope. He admit to sedentary lifestyle. Assessment 1. Coronary artery disease with prior bypass surgery back in 2006 according to previous note it include CARLSON to the LAD, radial graft to diagonal and ramus in sequential fashion and saphenous vein graft to the obtuse marginal and another saphenous vein graft to the PDA he apparently had also a PCI of the CARLSON to the LAD subsequently.. He denies chest pain but admit to sedentary lifestyle 2. Ischemic cardiomyopathy with LVEF around 35-40% on good medical therapy 3. Status post AICD implantation with generator replacement back in 2019 last device check was earlier this year 4. Essential hypertension 5. Mixed hyperlipidemia 6. Overweight with BMI of 28 Plan 1. Patient currently on good guideline directed medical therapy 2. We discussed risk factor modification 3. Advised the patient to have a device check 4. I reviewed his previous record including echocardiogram, previous documented record and device check 5. Patient report he does usually his labs through the [employer] system and I told him to bring copy of his lab with him 6. Will see him back in 9 months and follow-up Review of Systems All other systems reviewed and are negative. Vitals: 02/28/24 1035 BP: 144/82 BP Location: Left arm Patient Position: Sitting Pulse: 57 Weight: 72.8 kg (160 lb 6.4 oz) Height: 1.6 m (5' 3 ) EKG done in office today Objective Physical Exam Constitutional: Appearance: Normal appearance. HENT: Nose: Nose normal. Neck: Vascular: No carotid bruit. Cardiovascular: Rate and Rhythm: Normal rate. Pulses: Normal pulses. Heart sounds: Normal heart sounds. Pulmonary: Effort: Pulmonary effort is normal. Abdominal: General: Bowel sounds are normal. Palpations: Abdomen is soft. Musculoskeletal: General: Normal range of motion. Cervical back: Normal range of motion. Right lower leg: No edema. Left lower leg: No edema. Skin: General: Skin is warm and dry. Neurological: General: No focal deficit present. Mental Status: He is alert. Psychiatric: Mood and Affect: Mood normal. Behavior: Behavior normal. Thought Content: Thought content normal. Judgment: Judgment normal. Allergies Patient has no known allergies. Current Medications Current Outpatient Medications: aspirin 81 mg EC tablet, Take 1 tablet (81 mg) by mouth once daily., Disp: , Rfl: atorvastatin (Lipitor) 40 mg tablet, Take 1 tablet (40 mg) by mouth once daily., Disp: 90 tablet, Rfl: 3 carvedilol (Coreg) 25 mg tablet, Take 1 tablet (25 mg) by mouth 2 times a day., Disp: 180 tablet, Rfl: 3 clopidogrel (Plavix) 75 mg tablet, Take 1 tablet (75 mg) by mouth once daily., Disp: 90 tablet, Rfl: 3 gabapentin (Neurontin) 100 mg capsule, Take 1 capsule (100 mg) by mouth 3 times a day., Disp: , Rfl: omeprazole (PriLOSEC) [address] capsule, Take 1 capsule (20 mg) by mouth once daily., Disp: , Rfl: sacubitriL-valsartan (Entresto) 49-51 mg tablet, Take 1 tablet by mouth 2 times a day., Disp: , Rfl: Assessment/Plan 1. Multiple vessel coronary artery disease Follow Up In Cardiology ECG 12 Lead 2. Cardiomyopathy, ischemic Follow Up In Cardiology Referral to Pacemaker Clinic and Follow Up 3. Mixed hyperlipidemia 4. ICD (implantable cardioverter-defibrillator) in place Referral to Pacemaker Clinic and Follow Up 5. Hx of CABG 6. Chronic systolic heart failure Referral to Pacemaker Clinic and Follow Up 7. BMI 27.0-27.9,adult 8. Smoker Scribe Attestation By signing my name below, Geni Jhaveri LPN, Scribe attest that this documentation has been prepared under the direction and in the presence of Shobha Lawson MD. Provider Attestation - Scribe documentation All medical record entries made by the Scribe were at my direction and personally dictated by me. I have reviewed the chart and agree that the record accurately reflects my personal performance of the history, physical exam, discussion and plan. documented in this encounter [facility] Work Phone: 02-28-2024 Instructions Geni Lundberg LPN - 02/28/2024 10:40 AM EST Please bring all medicines, vitamins, and herbal supplements with you when you come to the office. Prescriptions will not be filled unless you are compliant with your follow up appointments or have a follow up appointment scheduled as per instruction of your physician. Refills should be requested at the time of your visit. Pacemaker/Defibrillator follow up per routine Lab as scheduled with CT Follow up documented in this encounter [facility] Work Phone: 02-12-2024 History of Present illness Narrative Associated Problem(s): Polyneuropathy Taking Gabapentin 100mg BID prescribed from CT. Reports medication is not effective. Would like to increase dosing, as [facility]. Agreed to increase dose to 200mg BID at this time. Will evaluate again at next OV. Associated Problem(s): Mixed hyperlipidemia (CMS/HCC) Currently taking Atorvastatin 40mg Denies any myalgias. Continue current regimen. Associated Problem(s): Hypertension (CMS/HCC) Currently taking carvedilol BID; Entresto Checks BP at home; Averages are 110-125. Denies orthostatic changes, dizziness, cough, shortness of breath, swelling in extremities. Continue current regimen. Given BP log, advised pt to record BP and bring log back with them to next visit. Images from the original note were not included. Subjective Patient ID: Akil Gonzales is a 78 y.o. male who presents for Follow-up. HPI [facility] Pt requests no labs until see's CT in March, as they will also be ordering labs. HTN: Currently taking carvedilol; Entresto Checks BP at home; Averages are 110-125. Denies orthostatic changes, dizziness, cough, shortness of breath, swelling in extremities. Continue current regimen. Given BP log, advised pt to record BP and bring log back with them to next visit. HLD: Currently taking Atorvastatin 40mg Denies any myalgias. Continue current regimen. Component Ref Range & Units 10 mo ago (04/13/23) 10 mo ago (04/13/23) 10 mo ago (04/13/23) TRIGLYCERIDES <=150 mg/dL 68 141 R 28.2 R CHOLESTEROL <=200 mg/dL 147 4.3 R 0.2 R HDL CHOLESTEROL 40 - 60 mg/dL 48 10.5 R 3.2 R Comment: > or =60 mg/dl - LOW CARDIOVASCULAR RISK <40 mg/dl - HIGH CARDIOVASCULAR RISK LDL CHOLESTEROL CALCULATED mg/dL 85.4 90 R 1.6 R Comment: <100 mg/dl OPTIMAL 100-129 mg/dl NEAR OR ABOVE OPTIMAL 130-159 mg/dl BORDERLINE HIGH 160-189 mg/dl HIGH >190 mg/dl VERY HIGH VLDL CHOLESTEROL mg/dL 13.6 0.7 R 0.6 R CHOL HDL RATIO 3.1 24 R 0.01 R Comment: 3.3 - 4.4 LOW RISK 4.4 - 7.1 AVERAGE RISK 7.1 - 11.0 MODERATE RISK >11.0 HIGH RISK ALANINE AMINOTRANSFERASE 29 R ALKALINE PHOSPHATASE 71 R TOTAL PROTEIN 6.6 R ALBUMIN LEVEL 3.4 R ALBUMIN GLOBULIN RATIO 1.1 Resulting Agency [facility] Review of Systems Constitutional: Negative for activity change, appetite change, chills, diaphoresis, fatigue, fever and unexpected weight change. HENT: Negative for congestion, ear pain, rhinorrhea, sinus pressure, sinus pain, sneezing, sore throat, trouble swallowing and voice change. Eyes: Negative for visual disturbance. Respiratory: Negative for cough, chest tightness, shortness of breath and wheezing. Cardiovascular: Negative for chest pain, palpitations and leg swelling. Gastrointestinal: Negative for abdominal distention, abdominal pain, blood in stool, constipation, diarrhea and vomiting. Genitourinary: Negative for decreased urine volume, dysuria, flank pain, frequency, hematuria and urgency. Musculoskeletal: Negative for arthralgias, gait problem, joint swelling and myalgias. Skin: Negative for rash. Neurological: Negative for dizziness, tremors, syncope, weakness, light-headedness and headaches. Psychiatric/Behavioral: Negative for decreased concentration and suicidal ideas. The patient is not nervous/anxious. Hematological: Does not bruise/bleed easily. Endocrine: Negative for cold intolerance, heat intolerance, polydipsia, polyphagia and polyuria. Objective Physical Exam Vitals reviewed. Constitutional: Appearance: Normal appearance. HENT: Head: Normocephalic and atraumatic. Right Ear: Tympanic membrane normal. Left Ear: Tympanic membrane normal. Nose: Nose normal. Mouth/Throat: Mouth: Mucous membranes are moist. Pharynx: Oropharynx is clear. Eyes: Pupils: Pupils are equal, round, and reactive to light. Cardiovascular: Rate and Rhythm: Normal rate and regular rhythm. Pulses: Normal pulses. Heart sounds: Normal heart sounds. Pulmonary: Effort: Pulmonary effort is normal. Breath sounds: Normal breath sounds. Abdominal: General: Abdomen is flat. Bowel sounds are normal. Palpations: Abdomen is soft. Musculoskeletal: General: Normal range of motion. Cervical back: Normal range of motion. Skin: General: Skin is warm and dry. Capillary Refill: Capillary refill takes less than 2 seconds. Neurological: General: No focal deficit present. Mental Status: He is alert and oriented to person, place, and time. Psychiatric: Mood and Affect: Mood normal. Behavior: Behavior normal. Assessment/Plan Problem List Items Addressed This Visit Hypertension (CMS/HCC) Currently taking carvedilol BID; Entresto Checks BP at home; Averages are 110-125. Denies orthostatic changes, dizziness, cough, shortness of breath, swelling in extremities. Continue current regimen. Given BP log, advised pt to record BP and bring log back with them to next visit. Mixed hyperlipidemia (CMS/HCC) - Primary Currently taking Atorvastatin 40mg Denies any myalgias. Continue current regimen. Chronic bilateral low back pain with bilateral sciatica Relevant Medications gabapentin (Neurontin) 100 MG capsule Polyneuropathy Taking Gabapentin 100mg BID prescribed from CT. Reports medication is not effective. Would like to increase dosing, as he does not see CT until D[place] alexandra next year. Agreed to increase dose to 200mg BID at this time. Will evaluate again at next OV. documented in this encounter [facility] 09-24-2023 History of Present illness Narrative Subjective Akil Gonzales is a 78 y.o. male Chief Complaint Follow-up HPI Review of Systems Cardiovascular: Positive for irregular heartbeat. All other systems reviewed and are negative. Patient returns in follow-up of problems as noted. He is labeled as another consult at the request of the CT. For reasons unknown. He is interestingly wearing a 14-day event monitor. Apparently complained of palpitation to his provider and they applied the monitor. This is somewhat odd because he has an implantable defibrillator and device checks have not demonstrated any significant arrhythmias necessitating adjustments in therapy. They might be screening for arrhythmias below detection rate. From a cardiac standpoint he is doing relatively well. He has no angina dyspnea or other complaints. Simply some palpitations. We discussed the symptoms of CAD that preceded his diagnosis and subsequent bypass surgery and has no such symptoms. His heart failure is actually well compensated on current therapy and because of this it appears adjustments or not necessary. Lipids are also adequately addressed. In light of all the above we suggest continue therapy without change. Vitals: 09/24/23 1019 BP: 142/84 BP Location: Left arm Patient Position: Sitting Pulse: 60 Weight: 70.3 kg (155 lb) Height: 1.6 m (5' 3 ) Objective Physical Exam Constitutional: Appearance: Normal appearance. HENT: Nose: Nose normal. Neck: Vascular: No carotid bruit. Cardiovascular: Rate and Rhythm: Normal rate. Pulses: Normal pulses. Heart sounds: Normal heart sounds. Pulmonary: Effort: Pulmonary effort is normal. Abdominal: General: Bowel sounds are normal. Palpations: Abdomen is soft. Musculoskeletal: General: Normal range of motion. Cervical back: Normal range of motion. Right lower leg: No edema. Left lower leg: No edema. Skin: General: Skin is warm and dry. Neurological: General: No focal deficit present. Mental Status: He is alert. Psychiatric: Mood and Affect: Mood normal. Behavior: Behavior normal. Thought Content: Thought content normal. Judgment: Judgment normal. Allergies Patient has no known allergies. Current Medications Current Outpatient Medications: aspirin 81 mg EC tablet, Take 1 tablet (81 mg) by mouth once daily., Disp: , Rfl: atorvastatin (Lipitor) 40 mg tablet, Take 1 tablet (40 mg) by mouth once daily., Disp: , Rfl: carvedilol (Coreg) 25 mg tablet, Take 1 tablet (25 mg) by mouth 2 times a day., Disp: , Rfl: clopidogrel (Plavix) 75 mg tablet, Take 1 tablet (75 mg) by mouth once daily., Disp: , Rfl: omeprazole (PriLOSEC) [address] capsule, Take 1 capsule (20 mg) by mouth once daily., Disp: , Rfl: pregabalin (Lyrica) 100 mg capsule, Take 1 capsule (100 mg) by mouth 3 times a day., Disp: , Rfl: sacubitriL-valsartan (Entresto) 49-51 mg tablet, Take 1 tablet by mouth 2 times a day., Disp: , Rfl: Assessment/Plan 1. Coronary artery disease involving [place] coronary artery of [place] heart without angina pectoris Asymptomatic hence we believe stable - Follow Up In Cardiology 2. Hx of CABG A durable result has been achieved. No anginal symptoms. - Follow Up In Cardiology 3. Cardiomyopathy, ischemic Well compensated on carvedilol and Entresto. - Follow Up In Cardiology 4. Chronic systolic heart failure (Multi) Well compensated on carvedilol and Entresto - Follow Up In Cardiology 5. BMI 27.0-27.9,adult A modest diet was advocated 6. Smoker The merits of smoking cessation were advocated 7. ICD (implantable cardioverter-defibrillator) in place Device checks reviewed and found to be satisfactory 8. Mixed hyperlipidemia Review of treatment strategy demonstrates adequate control Scribe Attestation By signing my name below, I, Taylor Cisneros LPNibmary attest that this documentation has been prepared under the direction and in the presence of Rohan Black MD. Provider Attestation - Scribe documentation All medical record entries made by the Scribe were at my direction and personally dictated by me. I have reviewed the chart and agree that the record accurately reflects my personal performance of the history, physical exam, discussion and plan. documented in this encounter [facility] Work Phone: 09-24-2023 Instructions Carrie Reynoso LPN - 09/24/2023 10:40 AM EDT Please bring all medicines, vitamins, and herbal supplements with you when you come to the office. Prescriptions will not be filled unless you are compliant with your follow up appointments or have a follow up appointment scheduled as per instruction of your physician. Refills should be requested at the time of your visit. BMI was above normal measurement. Current weight: 70.3 kg (155 lb) Weight change since last visit (-) denotes wt loss -10 lbs Weight loss needed to achieve BMI 25: 14.2 Lbs Weight loss needed to achieve BMI 30: -14 Lbs Advised to Increase physical activity. Pacemaker/Defibrillator follow up per routine documented in this encounter [facility] Work Phone: 04-17-2023 History of Present illness Narrative Associated Problem(s): Elevated PSA measurement MRI LS spine showed 1.2 cm sacral lesion in 10/31. Suspicious for metastatic lesion. Labs ordered in consultation with Oncology. Normal CBC, CMP, SPEP. However, elevated PSA levels. Concern for metastatic prostate cancer due to suspicion bony lesion in sacral region. Referred to Urology. Associated Problem(s): Sacral lesion MRI LS spine showed 1.2 cm sacral lesion in 10/31. Suspicious for metastatic lesion. This finding was never addressed or reported to our office. [facility] I spoke to Dr Huerta's office to inquire if they knew about it. They were not aware of the MRI. I discussed his case with Oncology and blood work was ordered in consultation with them. Normal CBC, CMP, SPEP. However, elevated PSA levels. Concern for metastatic prostate cancer due to suspicion bony lesion in sacral region. Referred to Urology. Urology documented in this encounter [facility] 03-19-2023 History of Present illness Narrative Cardiology Consultation- New Consult Reason for referral: Ischemic cardiomyopathy with ICD HPI: Akil Gonzales is a 77 y.o. male seen for the above. He is an individual who used to be cared for at the [facility] facility. He actually lives [place] of [facility]. Recently he became disenchanted with care provided there and he goes to the [place] [facility], but does not avail himself of electrophysiologic management in [place]. For this reason he is seen. It appears he has a history of coronary disease with ischemic cardiomyopathy ejection fraction 35 to 40%. I defibrillator had been implanted and it looks like it was 2019. We did check in about 3 years ago and there appeared to be problems with the atrial lead but the ventricular lead was satisfactory as was the device and because of this I presume no intervention was undertaken. He had classic anginal symptomatology prior to his diagnosis of coronary disease. He describes throat tightness left arm discomfort. He has none of those with activity. He also denies orthopnea PND dyspnea exertion and has had no syncope near syncope palpitation or defibrillator shock. It appears he is on appropriate guideline directed therapy and his functional status is good. Because of this we will make no adjustments. He is interested in device management and because of this he will be [facility] for ICD check interrogation and possible reprogramming. Past Medical History: He has no past medical history on file. Surgical History: He has a past surgical history that includes CT angio coronary art with heartflow if score >30% (01/16/2022); CT angio head w and wo IV contrast (01/16/2022); Coronary artery bypass graft; Back surgery; Total hip arthroplasty; Wrist surgery; and Cataract extraction. Family History: Family History Problem Relation Name Age of Onset Heart attack Mother Emphysema Father Heart attack Brother Social History: Social History Tobacco Use Smoking status: Every Day Types: Cigars Smokeless tobacco: Never Substance Use Topics Alcohol use: Yes Comment: once a year maybe Allergies: Patient has no known allergies. Current Medications: Current Outpatient Medications: aspirin 81 mg EC tablet, Take 1 tablet (81 mg) by mouth once daily., Disp: , Rfl: atorvastatin (Lipitor) 40 mg tablet, Take 1 tablet (40 mg) by mouth once daily., Disp: , Rfl: carvedilol (Coreg) 25 mg tablet, Take 1 tablet (25 mg) by mouth every 12 hours., Disp: , Rfl: clopidogrel (Plavix) 75 mg tablet, Take 1 tablet (75 mg) by mouth once daily., Disp: , Rfl: omeprazole (PriLOSEC) [address] capsule, Take 1 capsule (20 mg) by mouth once daily., Disp: , Rfl: pregabalin (Lyrica) 150 mg capsule, Take 1 capsule (150 mg) by mouth 2 times a day., Disp: , Rfl: sacubitriL-valsartan (Entresto) 49-51 mg tablet, Take 1 tablet by mouth once daily., Disp: , Rfl: Vitals: Visit Vitals BP 140/82 (BP Location: Right arm, Patient Position: Sitting) Pulse 53 Ht 1.6 m (5' 3 ) Wt 74.8 kg (165 lb) BMI 29.23 kg/m Smoking Status Every Day BSA 1.82 m EKG done in office today Review of Systems All other systems reviewed and are negative. Objective Physical Exam Constitutional: Appearance: Normal appearance. He is normal weight. HENT: Nose: Nose normal. Neck: Vascular: No carotid bruit. Cardiovascular: Rate and Rhythm: Normal rate. Pulses: Normal pulses. Heart sounds: Normal heart sounds. Pulmonary: Effort: Pulmonary effort is normal. Abdominal: General: Bowel sounds are normal. Palpations: Abdomen is soft. Genitourinary: Rectum: Normal. Musculoskeletal: General: Normal range of motion. Cervical back: Normal range of motion. Right lower leg: No edema. Left lower leg: No edema. Skin: General: Skin is warm and dry. Neurological: General: No focal deficit present. Mental Status: He is alert. Psychiatric: Mood and Affect: Mood normal. Behavior: Behavior normal. Thought Content: Thought content normal. Judgment: Judgment normal. Assessment and Plan: 1. Coronary artery disease involving [place] coronary artery of [place] heart without angina pectoris Asymptomatic now. Previously had classic symptoms. 2. Hx of CABG No recurrence of anginal symptomatology since bypass surgery. 3. Cardiomyopathy, ischemic Cardiomyopathy appears to be functional class I. 4. Chronic systolic heart failure (CMS/HCC) CHF appears to be functional class I. 5. Mixed hyperlipidemia Good control on current therapy. Based upon review we recommend no adjustments. Scribe Attestation By signing my name below, I, Carrie VALDEZ , Scrrome attest that this documentation has been prepared under the direction and in the presence of Rohan Black MD. documented in this encounter [facility] Work Phone: 03-19-2023 Instructions Carrie Reynoso LPN - 03/19/2023 8:40 AM EST Please bring all medicines, vitamins, and herbal supplements with you when you come to the office. Prescriptions will not be filled unless you are compliant with your follow up appointments or have a follow up appointment scheduled as per instruction of your physician. Refills should be requested at the time of your visit. 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 angina pectoris- Primary Hx of CABG Postsurgical aortocoronary bypass status Cardiomyopathy, ischemic Other specified forms of chronic ischemic heart disease Chronic systolic heart failure (CMS/HCC) Chronic systolic heart failure Mixed hyperlipidemia documented in this encounter [facility] Work Phone: Evaluation noteNo assessment information available [facility] Work Phone: Evaluation note* Diagnosis Sacral lesion- Primary Elevated PSA measurement documented in this encounter [facility]* Diagnosis Chronic bilateral low back pain with bilateral sciatica- Primary documented in this encounter [facility]* Diagnosis Chronic systolic heart failure (CMS/HCC)- Primary Chronic systolic heart failure Chronic bilateral low back pain with bilateral sciatica Cerebrovascular accident (CVA), unspecified mechanism (CMS/HCC) Mixed hyperlipidemia (CMS/HCC) Mixed hyperlipidemia Primary hypertension (CMS/HCC) Unspecified essential hypertension Gastroesophageal reflux disease without esophagitis Esophageal reflux documented in this encounter [facility]* Diagnosis Primary hypertension (CMS/HCC)- Primary Unspecified essential hypertension Cerebrovascular accident (CVA), unspecified mechanism (CMS/HCC) Chronic systolic heart failure (CMS/HCC) Chronic systolic heart failure Mixed hyperlipidemia (CMS/HCC) Mixed hyperlipidemia Chronic bilateral low back pain with bilateral sciatica Medicare annual wellness visit, subsequent Sacral lesion Sacral lesion- Primary Elevated PSA measurement Elevated PSA measurement- Primary Chronic bilateral low back pain with bilateral sciatica Chronic systolic heart failure (CMS/HCC) Chronic systolic heart failure Cerebrovascular accident (CVA), unspecified mechanism (CMS/HCC) Primary hypertension (CMS/HCC) Unspecified essential hypertension Primary hypertension (CMS/HCC)- Primary Unspecified essential hypertension Mixed hyperlipidemia (CMS/HCC) Mixed hyperlipidemia Mixed hyperlipidemia (CMS/HCC)- Primary Mixed hyperlipidemia Primary hypertension (CMS/HCC) Unspecified essential hypertension Chronic bilateral low back pain with bilateral sciatica Polyneuropathy Unspecified hereditary and idiopathic peripheral neuropathy documented in this encounter [facility]* Diagnosis Primary hypertension (CMS/HCC)- Primary Unspecified essential hypertension Cerebrovascular accident (CVA), unspecified mechanism (CMS/HCC) Chronic systolic heart failure (CMS/HCC) Chronic systolic heart failure Mixed hyperlipidemia (CMS/HCC) Mixed hyperlipidemia Chronic bilateral low back pain with bilateral sciatica Medicare annual wellness visit, subsequent Sacral lesion Sacral lesion- Primary Elevated PSA measurement Elevated PSA measurement- Primary Chronic bilateral low back pain with bilateral sciatica Chronic systolic heart failure (CMS/HCC) Chronic systolic heart failure Cerebrovascular accident (CVA), unspecified mechanism (CMS/HCC) Primary hypertension (CMS/HCC) Unspecified essential hypertension Primary hypertension (CMS/HCC)- Primary Unspecified essential hypertension Mixed hyperlipidemia (CMS/HCC) Mixed hyperlipidemia Mixed hyperlipidemia (CMS/HCC)- Primary Mixed hyperlipidemia Primary hypertension (CMS/HCC) Unspecified essential hypertension Chronic bilateral low back pain with bilateral sciatica Polyneuropathy Unspecified hereditary and idiopathic peripheral neuropathy Polyneuropathy- Primary Unspecified hereditary and idiopathic peripheral neuropathy Chronic bilateral low back pain with bilateral sciatica documented in this encounter [facility]* Diagnosis Coronary artery disease involving [place] coronary artery of [place] heart without angina pectoris Hx of CABG Postsurgical aortocoronary bypass status Cardiomyopathy, ischemic Other specified forms of chronic ischemic heart disease Chronic systolic heart failure (Multi) Chronic systolic heart failure BMI 27.0-27.9,adult Smoker Tobacco use disorder ICD (implantable cardioverter-defibrillator) in place Mixed hyperlipidemia documented in this encounter [facility] Work Phone: Evaluation note* Diagnosis Multiple vessel coronary artery disease- Primary Cardiomyopathy, ischemic Other specified forms of chronic ischemic heart disease Mixed hyperlipidemia ICD (implantable cardioverter-defibrillator) in place Hx of CABG Postsurgical aortocoronary bypass status Chronic systolic heart failure BMI 27.0-27.9,adult Smoker Tobacco use disorder documented in this encounter [facility] Work Phone: Evaluation note* Diagnosis Primary hypertension (CMS/HCC)- Primary Unspecified essential hypertension Cerebrovascular accident (CVA), unspecified mechanism (CMS/HCC) Chronic systolic heart failure (CMS/HCC) Chronic systolic heart failure Mixed hyperlipidemia (CMS/HCC) Mixed hyperlipidemia Chronic bilateral low back pain with bilateral sciatica Medicare annual wellness visit, subsequent Sacral lesion Sacral lesion- Primary Elevated PSA measurement Elevated PSA measurement- Primary Chronic bilateral low back pain with bilateral sciatica Chronic systolic heart failure (CMS/HCC) Chronic systolic heart failure Cerebrovascular accident (CVA), unspecified mechanism (CMS/HCC) Primary hypertension (CMS/HCC) Unspecified essential hypertension Primary hypertension (CMS/HCC)- Primary Unspecified essential hypertension Mixed hyperlipidemia (CMS/HCC) Mixed hyperlipidemia Mixed hyperlipidemia (CMS/HCC)- Primary Mixed hyperlipidemia Primary hypertension (CMS/HCC) Unspecified essential hypertension Chronic bilateral low back pain with bilateral sciatica Polyneuropathy Unspecified hereditary and idiopathic peripheral neuropathy Gastroesophageal reflux disease without esophagitis Esophageal reflux documented in this encounter [facility] HealthcareHistory general Narrative - Reported* Type Description Date Medical History Arthritis Medical History cataracts Medical History heart disease Medical History high cholesterol Medical History pacemaker Medical History stroke Medical History stent Medical History defibrillator Surgical History lumbar laminectomy decompressio n Surgical History wrist Surgical History bilat hip replacement Hospitalization History see surg Hx [facility] Other reason for referral (narrative)* Consultation (Routine) - Authorized Specialty Diagnoses / Procedures Referred By Contac t Referred To Contact Cardiology Diagnoses Coronary artery disease involving [place] coronary artery of [place] heart without angina pectoris Hx of CABG Cardiomyopathy, ischemic Chronic systolic heart failure (CMS/HCC) Procedures Follow Up In Cardiology Rohan Black MD [address] [place] [address], [address] [address] Rohan Black MD [address] [place] [address], [address] [address] Referral ID Status Reason Start Date Expiration Date V isits Requested Visits Authorized Authorized 03/19/2023 03/18/2024 1 1 * Consultation (Routine) - Authorized Specialty Diagnoses / Procedures Referred By Contac t Referred To Contact Cardiology Diagnoses Hx of CABG Cardiomyopathy, ischemic Chronic systolic heart failure (CMS/HCC) Rohan Black MD [address] [place] [address], [address] [address] Referral ID Status Reason Start Date Expiration Date Visits Requested Visits Authorized Authorized Specialty Services Required 03/19/2023 03/18/2024 1 1 * Cardiovascular (Routine) - Pending Review Specialty Diagnoses / Procedures Referred By Contac t Referred To Contact Diagnoses Hx of CABG Chronic systolic heart failure (CMS/HCC) Procedures ECG 12 Lead Rohan Black MD [address] [place] [address], [address] [address] Referral ID Status Reason Start Date Expiration Date V isits Requested Visits Authorized Pending Review 03/19/2023 03/18/2024 1 1 [facility] Work Phone: reason for referral (narrative)* Consultation (Routine) - Pending Review Specialty Diagnoses / Procedures Referred By Contac t Referred To Contact Urology Diagnoses Sacral lesion Elevated PSA measurement Procedures [place] OFFICE/OUTPATIENT NEW HIGH MDM 60 MINUTES Shaikh Bonilla MD [address] [place] [address] Arthur Cho MD [address] [place] [address] Referral ID Status Reason Start Date Expiration Date Visits Requested Visits Authorized [id number] Pending Review Specialty Services Required 04/17/2023 10/14/2023 1 1 [facility] Consultation (Routine) - Pending Review Specialty Diagnoses / Procedures Referred By Contac t Referred To Contact Cardiology Diagnoses Cardiomyopathy, ischemic Procedures Follow Up In Cardiology Rohan Black MD [address] [place] [address], [address] [address] Shobha Lawson MD [address] [place] [address] 2, [address] [address] Referral ID Status Reason Start Date Expiration Date V isits Requested Visits Authorized [id number] Pending Review 09/24/2023 09/23/2024 1 1 [facility] Work Phone: Summary Purpose Family History No Family History Records FoundNo Family History Records FoundNo Family History Records FoundNo Family History Records FoundNo Family History Records Found Advance Directives No Advanced Directives Records Found Advance Directive Response Recorded Date/ Time Advance Directives No March 19, 2023 9:17am Advance Directive Response Recorded Date/ Time Advance Directives Yes April 8:48am Chief Complaint and Reason for Visit Chief Complaint i50.22 i25.5 z95.1 Chief Complaint Admit Date z95.810 i25.5 April 10, 2024 1 2:35pm Reason for Referral Reason surgical consult Diagnosis 1 Lumbar back pain wit h radiculopathy affecting left lower extremity (M54.16) Referral Organization [facility] Referring Provider First Name Nuvia Referring Provider Last Name Alba Referring Provider Specialty Nurse Jackson dickson Referred Organization [facility] Referred Provider SCARLETT SHEPARD Referred Address [address] [facility] [place], [place] Referred Provider Specialty Neurosurgery Referral Priority Routine Additional Source Comments (unrecognized sect ion and content) No Status Records FoundNo Status Records FoundNo Status Records FoundNo Status Records FoundNo Status Records Found INFORMATION SOURCE (unrecogn ized section and content) DATE CREATED AUTHOR [facility]/29/2022 [facility] DATE CREATED AUTHOR AUTHOR'S ORGANIZ ATION 03/24/2024 [facility] DATE CREATED AUTHOR AUTHOR'S ORGANIZ ATION 04/20/2024 [facility] DATE CREATED AUTHOR AUTHOR'S ORGANIZ ATION 05/16/2024 [facility] EPIC DATE CREATED AUTHOR AUTHOR'S ORGANIZ ATION 05/17/2024 [facility] Ambulatory REASON FOR VISIT (unrecogniz ed section and content) Reason Comments New Patient Visit PCM [facility] approval Specialty Diagnoses / Procedures Referred By Contac t Referred To Contact Diagnoses Hx of CABG Chronic systolic heart failure (CMS/HCC) Procedures ECG 12 Lead Rohan Black MD [address] [facility] [address], [place] [place] [id number] Referral ID Status Reason Start Date Expiration Date V isits Requested Visits Authorized [id number] Pending Review 03/19/2023 03/18/2024 1 1 Reason Comments Follow-up Reason Comments Follow-up 6 months [facility] referral ICD Specialty Diagnoses / Procedures Referred By Contac t Referred To Contact Cardiology Diagnoses Coronary artery disease involving [place] coronary artery of [place] heart without angina pectoris Hx of CABG Cardiomyopathy, ischemic Chronic systolic heart failure (Multi) Procedures Follow Up In Cardiology Rohan Black MD [address] [facility] 2, [place] [place] [id number] Rohan Black MD [address] [facility] 2, [address] [place] [address] Referral ID Status Reason Start Date Expiration Date V isits Requested Visits Authorized [id number] Authorized 03/19/2023 03/18/2024 1 1 Reason Comments Follow-up 4 month Specialty Diagnoses / Procedures Referred By Contac t Referred To Contact Cardiology Diagnoses Cardiomyopathy, ischemic Procedures Follow Up In Cardiology Rohan Black MD [place]i, MD Shobha [address] [facility] 2, [facility] [address] [place] [address] Phone: tel: fax: Referral ID Status Reason Start Date Expiration Date V isits Requested Visits Authorized [id number] Pending Review 09/24/2023 09/23/2024 1 1 Reason Onset Date Comments Med Refill 04/06/2024 Care Teams (unrecognized sec tion and content) Team Status: Active Member Role Status Dates Shaikh Chad MD Primary Care Provider Active Team Status: Active Member Role Status Dates Shaikh Chad MD Primary Care Provider Active Start: April 10, 2024 Shobha Lawson MD Other Provider Active St art: April 10, 2024 Cortney Ocampo MD Attending Provider Active Start: April 10, 2024 Pay Station Attendant Relationship Specialty Start Date End Date Shaikh Bonilla MD [address] [place] [address] PCP - General Internal Medicine 03/19/23 Team Status: Inactive Member Role Status Dates Rohan Black MD Attending Provider Active Shaikh Chad MD Primary Care Provider Active Pay Station Attendant Relationship Specialty Start Date End Date Shaikh Bonilla MD [address] [place] [phone] PCP - General Internal Medicine 03/29/23 Pay Station Attendant Relationship Specialty Start Date End Date Shaikh Bonilla MD [address] [place] [phone] PCP - General Internal Medicine 03/29/23 Pay Station Attendant Relationship Specialty Start Date End Date Shaikh Bonilla MD [address] [place] [phone] PCP - General Internal Medicine 03/29/23 Pay Station Attendant Relationship Specialty Start Date End Date Chris Quinones MD [address] [place] [phone] PCP - General Family Medicine 11/04/23 Mary Doran NP [address] [place] [phone] Nurse Practitioner Family Medicine 11/04/23 Pay Station Attendant Relationship Specialty Start Date End Date Chris Quinones MD [address] [place] [phone] PCP - General Family Medicine 11/04/23 Mary Doran NP [address] [place] [address] Nurse Practitioner Family Medicine 11/04/23 Pay Station Attendant Relationship Specialty Start Date End Date Chris Quinones MD [address] [place] [phone] PCP - General Family Medicine 11/04/23 Mary Doran NP [address] [place] [address] Nurse Practitioner Family Medicine 11/04/23 Pay Station Attendant Relationship Specialty Start Date End Date Shaikh Bonilla MD [address] [place] [address] PCP - General Internal Medicine 09/24/23 Pay Station Attendant Relationship Specialty Start Date End Date Mary Doran APRN[facility] [address] [place] [address] PCP - General Family Medicine 02/28/24 Pay Station Attendant Relationship Specialty Start Date End Date Chris Quinones MD [address] [place] [phone] PCP - General Family Medicine 11/04/23 Mary Doran NP [address] [place] [address] Nurse Practitioner Family Medicine 11/04/23 Pay Station Attendant Relationship Specialty Start Date End Date Chris Quinones MD [address] [place] [phone] PCP - General Family Medicine 11/04/23 Mary Doran NP [address] [place] [address] Nurse Practitioner Family Medicine 11/04/23 Goals (unrecognized section and content) Goals may be documented in a n alternate section FOR RECORDS PERTAINING TO PATIENTS WHO ARE OR HAVE BEEN ENROLLED IN A CHEMICAL DEPENDENCY/SUBSTANCEABUSE PROGRAM, SOME INFORMATION MAY BE OMITTED. This clinical summary was aggregated from multiple sources. Caution should be exercised in using it in the provision of clinical care. This summary normalizes information from multiple sources, and as a consequence, information in this document may materially change the coding, format and clinical context of patient data. In addition, data may be omitted in some cases. CLINICAL DECISIONS SHOULD BE BASED ON THE PRIMARY CLINICAL RECORDS. [facility] provides no warranty or guarantee of the accuracy or completeness of information in this document.
[2024-05-27 09:13] LABS: Basophils Percent Auto 0.8 % (0.2-2.0); Eosinophils Absolute Auto 0.2 10^3/uL (0.0-0.7); Hematocrit 40.1 % (42.0-54.0); Immature Granulocytes Abs Auto 0.01 10^3/uL (0.00-0.03); Immature Granulocytes Pct Auto 0.2 % (0.0-0.5); Lymphocytes Absolute Auto 1.2 10^3/uL (1.2-3.8); Lymphocytes Percent Auto 24.5 % (20.5-60.0); Mean Corpuscular HGB Conc 32.4 g/dL (29.9-35.2); Mean Corpuscular Hemoglobin 29.9 pg (25.9-34.0); Mean Corpuscular Volume 92.2 fL (80.0-94.0); Mean Platelet Volume 9.4 fL (9.5-13.5); Monocytes Absolute Auto 0.4 10^3/uL (0.3-0.8); Monocytes Percent Auto 8.9 % (1.7-12.0); Neutrophils Percent Auto 61.6 % (43.0-75.0); Platelet Count 247 10^3/uL (150-450); Red Blood Count 4.35 10^6/uL (4.70-6.10); Red Cell Distribution Width 13.3 % (11.0-15.0); White Blood Count 4.8 10^3/uL (4.0-11.0)
[2024-05-27 10:56] LABS: Alanine Aminotransferase 24 U/L (16-63); Albumin Globulin Ratio 1.2; Albumin Level 3.5 g/dL (3.4-5.0); Alkaline Phosphatase 80 U/L (46-116); Anion Gap 12.4; Aspartate Amino Transferase 23 U/L (15-37); BUN Creatinine Ratio 17.1; Bilirubin Total 0.9 mg/dL (0.2-1.0); Calcium 8.7 mg/dL (8.5-10.1); Carbon Dioxide 27.7 mmol/L (21.0-32.0); Chloride 108 mmol/L (98-107); Chol HDL Ratio 2.8; Cholesterol 132 mg/dL (<=200); Estimated GFR (African America >60 (>=60 mL/min/1.73m^2); Estimated GFR (Non-African Ame >60 (>=60 mL/min/1.73m^2); Globulin 2.8 g/dL; Glucose 89 mg/dL (74-106); HDL Cholesterol 48 mg/dL (40-60); LDL Cholesterol Calculated 71.8 mg/dL; Potassium 4.1 mmol/L (3.5-5.1); Sodium 144 mmol/L (136-145); Total Protein 6.3 g/dL (6.4-8.2); Triglycerides 61 mg/dL (<=150); VLDL CHOLESTEROL 12.2 mg/dL
[2024-05-27 11:02] LABS: Prostate Specific Antigen Scrn 5.32 ng/mL (<=4.00)
== END 2024-05-27 08:54 | disposition home or self-care (01) ==
LOC: LAB 08:53
PROVIDERS: PCP Nurse Practitioner; Visit Provider Nurse Practitioner
DX: G62.9 Polyneuropathy, unspecified (principal); I25.10 Atherosclerotic heart disease of native coronary artery without angina pectoris; E78.2 Mixed hyperlipidemia; Z12.5 Encounter for screening for malignant neoplasm of prostate; I11.0 Hypertensive heart disease with heart failure
CPT/HCPCS: 36415; 80053; 80061; 82043; 82570; 85025; G0103

== ENCOUNTER 2024-05-28 10:33 | Outpatient (REF) | payer MEDICARE, SELFPAY ==
--- OUTSIDE RECORDS SUMMARY | 2024-05-28 10:52 | XMS_ITS | CCD ---
Author Organization [facility] Care Team Providers Care Reservoir Engineering Manager Name Role Phone SHAIKH Gilmar BONILLA Admitting [...] Provider Chris Quinones MD Primary Care Provider Andreea HOPSON, Mary Unavailable Chad BLUM, Byers Primary Care Provider Andreea TRANSVERSE ABDOMINAL MUSCLE SURGEON-Mary BRODERICK Primary Care Prov ider NESSA PANTOJA Referring Unavailable MARY DORAN Primary Care Unavaila Shaikh Rosenberg Primary Care Unavailable Shobha Lawson Attending Unavailable Shobha Lawson Admitting Unavailable Andreea ACETYLENE GAS COMPRESSORMary Unavailable SHARLENE CHILDRESS Attending Unavailable SHAIKH BONILLA Attending Unavailable MARY DORAN Attending UnavailMARY Chuodhary Attending UnavailROHAN Husain Attending Unavailable ROHAN BLACK [...] Coronary arteriosclerosis; Translations: [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 QTc 416 ms [facility] Work Phone: URINE T PROTEIN CREAT RATIOo n 03-29-2022 Protein (U) [Mass/Vol] 24.9 mg/dL Critically high <=12.0 [facility] Comment on above: Performed By: #### U RTPCR #### [facility] [address] [address] [address] Hamlet Sun UR PROT CREAT RAT 0.19 Normal [facility] Comment on above: Performed By: #### U RTPCR #### [facility] [address] [address] [address] Hamlet Sun URINE CREAT 132.48 mg/dL Normal 20.00-300.00 [facility] Comment on above: Performed By: #### U RTPCR #### [facility] [address] [address] [address] Hamlet Sun CBC AUTO DIFFon 03-28-2022 BASO # 0.0 103/ul Normal 0.0-0.1 [facility] Comment on above: Performed By: #### C BC #### [facility] [address] [address] [address] Hamlet Sun Basophils/100 WBC (Bld) 0.8 % Normal 0.2-2.0 [facility] Comment on above: Performed By: #### C BC #### [facility] [address] [place] [address] Dr. Hamlet Sun EO # 0.2 103/ul Normal 0.0-0.7 [facility] Comment on above: Performed By: #### C BC #### [facility] [address] [address] [address] Hamlet Sun Eosinophils/100 WBC (Bld) 4.3 % Normal 0.9-7.0 [facility] Comment on above: Performed By: #### C BC #### [facility] [address] [address] [address] Hamlet Sun Erythrocyte distribution width (RBC) [Ratio] 13.9 % Normal 11.0-15.0 [facility] Comment on above: Performed By: #### C BC #### [facility] [address] [address] [address] Hamlet Sun Hematocrit (Bld) [Volume fraction] 39.5 % Critically low 42.0-54.0 [facility] Comment on above: Performed By: #### C BC #### [facility] [address] [place] [address] Dr. Hamlet Sun Hemoglobin (Bld) [Mass/Vol] 12.7 g/dL Critically low 14.0-18.0 [facility] Comment on above: Performed By: #### C BC #### [facility] [address] [place] [address] Dr. Hamlet Sun IG # 0.01 10e3/ul Normal 0.00-0.03 [facility] Comment on above: Performed By: #### C BC #### [facility] [address] [place] [address] Dr. Hamlet Sun IG % 0.2 % Normal 0.0-0.5 [facility] Comment on above: Performed By: #### C BC #### [facility] [address] [place] [address] Dr. Hamlet Sun LYMPH # 1.2 103/ul Normal 1.2-3.8 [facility] Comment on above: Performed By: #### C BC #### [facility] [address] [place] [address] Dr. Hamlet Sun Lymphocytes/100 WBC (Bld) 22.8 % Normal 20.5-60.0 [facility] Comment on above: Performed By: #### C BC #### [facility] [address] [place] [address] Dr. Hamlet Sun MANUAL DIFF REQ NO Normal [facility] Comment on above: Performed By: #### C BC #### [facility] [address] [place] [address] Dr. Hamlet Sun MCH (RBC) [Entitic mass] 28.9 pg Normal 25.9-34.0 [facility] Comment on above: Performed By: #### C BC #### [facility] [address] [place] [address] Dr. Hamlet Sun MCHC (RBC) [Mass/Vol] 32.2 g/dL Normal 29.9-35.2 [facility] Comment on above: Performed By: #### C BC #### [facility] [address] [place] [address] Dr. Hamlet Sun MCV (RBC) [Entitic vol] 90.0 fL Normal 80.0-94.0 [facility] Comment on above: Performed By: #### C BC #### [facility] [address] [address] [address] Hamlet Sun MONO # 0.5 103/ul Normal 0.3-0.8 [facility] Comment on above: Performed By: #### C BC #### [facility] [address] [address] [address] Hamlet Sun Monocytes/100 WBC (Bld) 9.8 % Normal 1.7-12.0 [facility] Comment on above: Performed By: #### C BC #### [facility] [address] [place] [address] Dr. Hamlet Sun NEUT # 3.3 103/ul Normal 1.4-6.5 [facility] Comment on above: Performed By: #### C BC #### [facility] [address] [place] [address] Dr. Hamlet Sun Neutrophils/100 WBC (Bld) 62.1 % Normal 43.0-75.0 [facility] Comment on above: Performed By: #### C BC #### [facility] [address] [place] [address] Dr. Hamlet Sun Platelet mean volume (Bld) [Entitic vol] 9.2 fL Critically low 9.5-13.5 [facility] Comment on above: Performed By: #### C BC #### [facility] [address] [place] [address] Dr. Hamlet Sun PLT 281 103/ul Normal 150-450 [facility] Comment on above: Performed By: #### C BC #### [facility] [address] [place] [address] Dr. Hamlet Sun RBC 4.39 106/ul Critically low 4.70-6.10 [facility] Comment on above: Performed By: #### C BC #### [facility] [address] [place] [address] Dr. Hamlet Sun WBC 5.3 103/ul Normal 4.0-11.0 [facility] Comment on above: Performed By: #### C BC #### [facility] [address] [address] [address] Hamlet Sun LIPID PROFILEon 03-28-2022 CHOL-HDL RATIO NORM SEE BELOW Normal [facility] Comment on above: Result Comment: 3.3 - 4.4 LOW RISK 4.4 - 7.1 AVERAGE RISK 7.1 - 11.0 MODERATE RISK >11.0 HIGH RISK Performed By: #### C MP, LIPID #### [facility] [address] [address] [address] Hamlet Sun Cholesterol [Mass/Vol] 138 mg/dL Normal <=200 [facility] Comment on above: Performed By: #### C MP, LIPID #### [facility] [address] [address] [address] Hamlet Sun Cholesterol in HDL [Mass/Vol] 44 mg/dL Normal 40-60 [facility] Comment on above: Performed By: #### C MP, LIPID #### [facility] [address] [address] [address] Hamlet Sun Cholesterol in LDL [Mass/Vol] 75.0 mg/dL Normal [facility] Comment on above: Performed By: #### C MP, LIPID #### [facility] [address] [address] [address] Hamlet Sun Cholesterol.total/ Cholesterol in HDL [Mass ratio] 3.1 {ratio} Normal [facility] Comment on above: Performed By: #### C MP, LIPID #### [facility] [address] [address] [address] Hamlet Sun HDL NORMAL > or = 60 mg/dl - LOW CARDIOVASCULAR RISK <40 mg/dl - HIGH CARDIOVASCULAR RISK Normal [facility] Comment on above: Performed By: #### C MP, LIPID #### [facility] [address] [address] [address] Hamlet Sun LDL CALC NORMAL SEE BELOW Normal [facility] Comment on above: Result Comment: <100 mg/dl OPTIMAL 100 - 129 mg/dl NEAR OR ABOVE OPTIMAL 130 - 159 mg/dl BORDERLINE HIGH 160 - 189 mg/dl HIGH >190 mg/dl VERY HIGH Performed By: #### C MP, LIPID #### [facility] [address] [place] [address] Dr. Hamlet Sun Triglyceride [Mass/Vol] 94 mg/dL Normal <=150 [facility] Comment on above: Performed By: #### C MP, LIPID #### [facility] [address] [place] [address] Dr. Hamlet Sun VLDL CALC 18.8 mg/dL Normal [facility] Comment on above: Performed By: #### C MP, LIPID #### [facility] [address] [place] [address] Dr. Hamlet Sun PROF 14(COMP METB)on 023 Albumin [Mass/Vol] 3.5 g/dL Normal 3.4-5.[address] [facility] Comment on above: Performed By: #### C MP, LIPID #### [facility] [address] [place] [address] Dr. Hamlet Sun Albumin/Globulin [Mass ratio] 1.2 {ratio} Normal [facility] Comment on above: Performed By: #### C MP, LIPID #### [facility] [address] [place] [address] Dr. Hamlet Sun ALP [Catalytic activity/Vol] 88 U/L Normal 46-116 [facility] Comment on above: Performed By: #### C MP, LIPID #### [facility] [address] [place] [address] Dr. Hamlet Sun ALT [Catalytic activity/Vol] 27 U/L Normal 16-63 [facility] Comment on above: Performed By: #### C MP, LIPID #### [facility] [address] [place] [address] Dr. Hamlet Sun Anion gap [Moles/Vol] 11.5 mmol/L Normal [facility] Comment on above: Performed By: #### C MP, LIPID #### [facility] [address] [place] [address] Dr. Hamlet Sun AST [Catalytic activity/Vol] 26 U/L Normal 15-37 [facility] Comment on above: Performed By: #### C MP, LIPID #### [facility] [address] [place] [address] Dr. Hamlet Sun Bilirubin [Mass/Vol] 0.7 mg/dL Normal 0.2-1.0 [facility] Comment on above: Performed By: #### C MP, LIPID #### [facility] [address] [place] [address] Dr. Hamlet Sun Calcium [Mass/Vol] 8.5 mg/dL Normal 8.5-10.[address] [facility] Comment on above: Performed By: #### C MP, LIPID #### [facility] [address] [place] [address] Dr. Hamlet Sun Chloride [Moles/Vol] 106 mmol/L Normal 98-107 [facility] Comment on above: Performed By: #### C MP, LIPID #### [facility] [address] [place] [address] Dr. Hamlet Sun CO2 [Moles/Vol] 26.3 mmol/L Normal 21.0-32.0 [facility] Comment on above: Performed By: #### C MP, LIPID #### [facility] [address] [place] [address] Dr. Hamlet Sun Creatinine [Mass/Vol] 0.97 mg/dL Normal 0.70-1.30 [facility] Comment on above: Performed By: #### C MP, LIPID #### [facility] [address] [place] [address] Dr. Hamlet Sun EGFR-AF SWEDISH >60 Normal >=60 [facility] Comment on above: Performed By: #### C MP, LIPID #### [facility] [address] [place] [address] Dr. Hamlet Sun EGFR-NON AF SWEDISH >60 Normal >=60 [facility] Comment on above: Performed By: #### C MP, LIPID #### [facility] [address] [place] [address] Dr. Hamlet Sun Globulin (S) [Mass/Vol] 2.9 g/dL Normal [facility] Comment on above: Performed By: #### C MP, LIPID #### [facility] [address] [place] [address] Dr. Hamlet Sun Glucose [Mass/Vol] 98 mg/dL Normal 74-106 [facility] Comment on above: Performed By: #### C MP, LIPID #### [facility] [address] [place] [address] Dr. Hamlte Sun Potassium [Moles/Vol] 4.5 mmol/L Normal 3.5-5.1 [facility] Comment on above: Performed By: #### C MP, LIPID #### [facility] [address] [place] [address] Dr. Hamlet Sun Protein [Mass/Vol] 6.4 g/dL Normal 6.4-8.2 [facility] Comment on above: Performed By: #### C MP, LIPID #### [facility] [address] [place] [address] Dr. Hamlet Sun Sodium [Moles/Vol] 139 mmol/L Normal 136-[address] [facility] Comment on above: Performed By: #### C MP, LIPID #### [facility] [address] [place] [address] Dr. Hamlet Sun Urea nitrogen [Mass/Vol] 13.0 mg/dL Normal 7.0-18.0 [facility] Comment on above: Performed By: #### C MP, LIPID #### [facility] [address] [place] [address] Dr. Hamlet Sun Urea nitrogen/Creatinin e [Mass ratio] 13.4 mg/mg Normal [facility] Comment on above: Performed By: #### C MP, LIPID #### [facility] [address] [place] [address] Dr. Hamlet Sun Vital Signs Date Time Vital Sign Value Performing Clinician Cory salvador 02-28-2024 10:35-0500 Body height 160 cm Shobha Lawson MD Work Phone: [facility] 02-28-2024 10:35-0500 Body mass index (BMI) [Ratio] 28.41 kg/m2 Shobha Lawson MD Work Phone: [facility] 02-28-2024 10:35-0500 Body weight 72.76 kg Shobha Lawson MD Work Phone: [facility] 02-28-2024 10:35-0500 Diastolic blood pressure 82 mm[Hg] Shobha Lawson MD Work Phone: [facility] 02-28-2024 10:35-0500 Heart rate 57 /min Shobha Lawson MD Work Phone: [facility] 02-28-2024 10:35-0500 Systolic blood pressure 144 mm[Hg] Shobha Lawson MD Work Phone: [facility] 02-12-2024 13:06-0500 Body height 162.6 cm Mary Doran ACETYLENE GAS COMPRESSOR Work Phone: [facility] 02-12-2024 13:06-0500 Body mass index (BMI) [Ratio] 26.91 kg/m2 Mary Doran ACETYLENE GAS COMPRESSOR Work Phone: [facility] 02-12-2024 13:06-0500 Body temperature 96.4 [degF] Mary Doran ACETYLENE GAS COMPRESSOR Work Phone: [facility] 02-12-2024 13:06-0500 Body weight 71.12 kg Mary Doran ACETYLENE GAS COMPRESSOR Work Phone: [facility] 02-12-2024 13:06-0500 Diastolic blood pressure 62 mm[Hg] Mary Doran ACETYLENE GAS COMPRESSOR Work Phone: [facility] 02-12-2024 13:06-0500 Heart rate 59 /min Mary Doran ACETYLENE GAS COMPRESSOR Work Phone: [facility] 02-12-2024 13:06-0500 Respiratory rate 16 /min Mary Doran ACETYLENE GAS COMPRESSOR Work Phone: [facility] 02-12-2024 13:06-0500 SaO2% (BldA) [Mass fraction] 95 % Mary Doran ACETYLENE GAS COMPRESSOR Work Phone: [facility] 02-12-2024 13:06-0500 Systolic blood pressure 118 mm[Hg] Mary Doran ACETYLENE GAS COMPRESSOR Work Phone: [facility] 09-24-2023 10:19-0400 Body height 160 cm Rohan Black MD Work Phone: [facility] 09-24-2023 10:19-0400 Body mass index (BMI) [Ratio] 27.46 kg/m2 Rohan Black MD Work Phone: [facility] 09-24-2023 10:19-0400 Body weight 70.31 kg Rohan Black MD Work Phone: [facility] 09-24-2023 10:19-0400 Diastolic blood pressure 84 mm[Hg] Rohan Black MD Work Phone: [facility] 09-24-2023 10:19-0400 Heart rate 60 /min Rohan Black MD Work Phone: [facility] 09-24-2023 10:19-0400 Systolic blood pressure 142 mm[Hg] Rohan Black MD Work Phone: [facility] 03-19-2023 08:38-0500 Body height 160 cm Rohan Black MD Work Phone: [facility] 03-19-2023 08:38-0500 Body mass index (BMI) [Ratio] 29.23 kg/m2 Rohan Black MD Work Phone: [facility] 03-19-2023 08:38-0500 Body weight 74.84 kg Rohan Black MD Work Phone: [facility] 03-19-2023 08:38-0500 Diastolic blood pressure 82 mm[Hg] Rohan Black MD Work Phone: [facility] 03-19-2023 08:38-0500 Heart rate 53 /min Rohan Black MD Work Phone: [facility] 03-19-2023 08:38-0500 Systolic blood pressure 140 mm[Hg] Rohan Black MD Work Phone: [facility] Encounters Encounter Date Encounter Type Care Provider Facility Start: 05-14-2024 End: 05-14-2024 Bamboo flowsheet Sharlene Childress ACETY[employer]E GAS COMPRESSOR Work Phone: [facility] Start: 05-14-2024 End: 05-14-2024 Bamboo flowsheet Sharlene Childress ACETYLENE GAS COMPRESSOR Work Phone: [facility] Start: 05-14-2024 End: 05-14-2024 ambulatory SHARLENE CHILDRESS Not Available Start: 04-10-2024 End: 04-10-2024 ambulatory Shaikh Chad Facility:[facility] Start: 04-10-2024 Non-patient / Non-visit [facility] Start: 04-06-2024 End: 04-06-2024 Refill Mary Doran ACETYLENE GAS COMPRESSOR Work Phone: [facility] Comment on above: Gastroesophageal ref lux disease without esophagitis Start: 03-19-2024 End: 03-19-2024 ambulatory NESSA E [facility] Start: 02-28-2024 End: 02-28-2024 Office outpatient visit 25 minutes Shobha Lawson MD Work Phone: [facility] Comment on above: Multiple vessel jem nary artery disease (Primary Dx); Cardiomyopathy, ischemic; Mixed hyperlipidemia; ICD (implantable cardioverter-defibrillator) in place; Hx of CABG; Chronic systolic heart failure; BMI 27.0-27.9,adult; Smoker Start: 02-28-2024 End: 02-28-2024 [facility] Start: 02-19-2024 End: 02-19-2024 Orders Only Mary Doran ACETYLENE GAS COMPRESSOR Work Phone: [facility] Comment on above: Polyneuropathy (Prim dorene Dx); Chronic bilateral low back pain with bilateral sciatica Start: 02-12-2024 End: 02-12-2024 Bamboo flowsheet Mary Ricktrick ACETYLENE GAS COMPRESSOR Work Phone: [facility] Start: 02-12-2024 End: 02-12-2024 Bamboo flowsheet Mary Ricktrick ACETYLENE GAS COMPRESSOR Work Phone: [facility] Start: 02-12-2024 End: 02-12-2024 ambulatory MARY DORAN Not Available Start: 02-12-2024 End: 02-12-2024 Office outpatient visit 15 minutes Maryashley Bernalk ACETYLENE GAS COMPRESSOR Work Phone: [facility] Comment on above: Mixed hyperlipidemia (CMS/HCC) (Primary Dx); Primary hypertension (CMS/HCC); Chronic bilateral low back pain with bilateral sciatica; Polyneuropathy Start: 10-16-2023 End: 10-16-2023 ambulatory MARY RICKTRICK Not Available Start: 09-24-2023 End: 09-24-2023 Office outpatient visit 25 minutes Rohan Black MD Work Phone: [facility] Comment on above: Coronary artery dise ase involving eastern [place]rokee coronary artery of eastern [place] heart without angina pectoris; Hx of CABG; Cardiomyopathy, ischemic; Chronic systolic heart failure (Multi); BMI 27.0-27.9,adult; Smoker; ICD (implantable cardioverter-defibrillator) in place; Mixed hyperlipidemia Start: 09-24-2023 End: 09-24-2023 ambulatory ROHAN BLACK [facility] Start: 07-03-2023 End: 07-03-2023 ambulatory SHAIKH CHAD Not Available Start: 04-25-2023 Orders Only Shaikh Chad BLUM Work Phone: [facility] Comment on above: [...] PSA measurement Start: 04-02-2023 End: 04-02-2023 ambulatory [facility] [employer] [facility] Other Start: 04-02-2023 Patient encounter procedure Shaikh Cahd BLUM Work Phone: [facility] Start: 04-02-2023 Telephone encounter Nuvia Willis [facility] Start: 03-22-2023 End: 03-22-2023 ambulatory MD Shaikh Bonilla Work Phone: [facility] Work Phone: Start: 03-22-2023 End: 03-22-2023 Patient encounter procedure MD Shaikh Bonilla Work Phone: [facility] Start: 03-19-2023 End: 03-19-2023 Office outpatient new 45 minutes Rohan Black MD Work Phone: [facility] Comment on above: Coronary artery dise ase involving eastern [place] coronary artery of eastern [place] heart without angina pectoris (Primary Dx); Hx of CABG; Cardiomyopathy, ischemic; Chronic systolic heart failure (CMS/HCC); Mixed hyperlipidemia Start: 06-27-2022 End: 06-27-2022 ambulatory [facility] Other [place] [employer] Other Start: 06-27-2022 Telephone encounter Nuvia Willis [facility] Start: 03-29-2022 End: 03-29-2022 ambulatory SHAIKH [...] procedure 12/04/2024 10:30 AM EDT Office Visit [facility] [address] [employer] [place] [id number] Shobha Lawson MD [facility] [facility] [place] [address] [facility] Start: 05-14-2024 End: 05-14-2024 Patient encounter procedure [facility] Comment on above: Medicare annual well ness visit, subsequent (Primary Dx); Pulmonary hypertension, unspecified (CMS/HCC); Polyneuropathy; Arteriosclerosis of coronary artery (CMS/HCC); 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 (CMS/HCC); Chronic systolic heart failure (CMS/HCC); Primary hypertension (CMS/HCC); Chronic bilateral low back pain with bilateral sciatica; Cigarette nicotine dependence without complication; Mixed hyperlipidemia (CMS/HCC); Screening for prostate cancer Start: 04-08-2024 Influenza vaccination Influenza Vacc ine (#1) [facility] Comment on above: Postponed from 11/09 (Patient Refused) Start: 04-02-2024 Medicare Annual Well ness (AWV) Medicare Annual Wellness (AWV) [facility] Start: 02-28-2024 End: 02-28-2024 Patient encounter procedure 02/28/2024 10:40 AM EST Office Visit [address] [phone] Shobha Lawson MD [address] [facility] [address] [place] [address] [facility] Start: 11-10-2023 COVID-19 Vaccine ( season) COVID-19 Vaccine ( season) [facility] Start: 11-10-2023 Influenza vaccination Influenza Vacc ine (#1) [facility] Start: 09-24-2023 End: 09-24-2023 Patient encounter procedure 09/24/2023 10:40 AM EDT Office Visit [address] [phone] Rohan Black MD [address] [facility] [address] [place] [address] [facility] Start: 07-02-2023 End: 07-02-2023 Patient encounter procedure 07/02/2023 9:45 AM EDT Office Visit [facility] [address] [place] [address] Shaikh Bonilla MD [address] [place] [id number] [facility] Start: 01-17-2023 Echocardiography E[facility]ocardiogram [facility] Start: 11-09-2022 COVID-19 Vaccine ( season) COVID-19 Vaccine ( season) [facility] Start: 11-09-2022 Influenza vaccination Influenza Vacc ine (#1) [facility] Start: 2021 RSV High Risk: (Elde rly (60+) or Population) (1 - 1-dose 75+ series) RSV High Risk: (Elderly (60+) or Population) (1 - 1-dose 75+ series) [facility] Start: 04-11-2021 COVID-19 Vaccine (2 - Pfizer series) COVID-19 Vaccine (2 - Pfizer series) [facility] Start: 03-20-2017 Pneumococcal vaccination Pneum ococcal Vaccine (2 of 2 - PCV) [facility] Start: 03-20-2017 Pneumococcal Vaccine : 65+ Years (2 - PCV) Pneumococcal Vaccine: 65+ Years (2 - PCV) [facility] Start: 03-20-2017 Pneumococcal Vaccine : 65+ Years (2 of 2 - PCV) Pneumococcal Vaccine: 65+ Years (2 of 2 - PCV) [facility] Start: 2006 RSV patient s and/or patients aged 60+ years (1 - 1-dose 60+ series) RSV patients and/or patients aged 60+ years (1 - 1-dose 60+ series) [facility] Start: 1996 Zoster Vaccines (1 of 2) Zoste r Vaccines (1 of 2) [facility] Start: 1968 DTaP/Tdap/Td Vaccine s (1 - Tdap) DTaP/Tdap/Td Vaccines (1 - Tdap) [facility] Start: 1964 Diabetes mellitus screening Diabetes Screening [facility] [facility] Start: 1964 Hepatitis C screening Hepatitis C Sc [facility] Start: 1952 Pneumococcal Vaccine : 65+ Years (1 - PCV) Pneumococcal Vaccine: 65+ Years (1 - PCV) [facility] Start: 1952 Pneumococcal Vaccine : 65+ Years (1 of 2 - PCV) Pneumococcal Vaccine: 65+ Years (1 of 2 - PCV) [facility] Start: 1946 Creatinine measurement Creatinine Le vipin [facility] Start: 1946 Lipid panel Lipid Panel [facility] Start: 1946 Potassium measurement Potassium Leve l [facility] Start: 1946 Yearly Adult Physical Yearly Adult P hysical [facility] Payers Date Payer Category Payer Medicare (Managed Care) [employer] [id number] 2024 Self-pay [id number] 2024 Medicare [id number] 2023 Medicaid AETNA MEDICARE A DVANTAGE [id number] 2023 Medicare AETNA MEDICARE A DVANTAGE AETNA MEDICARE REPLACEMENT [id number] 2023-Present [address] [place] [address] [id number] 2023 Medicare [id number] 2022 Unknown [id number] 2005 [employer] [facility] [id number] 2005 Unknown [id number] .[id number] 2005 Unknown [id number] 18 1959 Medicare [id number] 1946 Unknown [id number] [id number] .593 1946 Unknown [id number] 2..1.392303.3.579.2 .593 1946 Unknown [id number] 2..1.859855.3.579.2 .1286 1946 Unknown [id number] 2.0.1.268470.3.579.2 .1259 1946 Unknown [id number] .[id number] .1259 1946 Unknown [id number] .1.960354.3.579.2 .1259 1946 Unknown [id number] [id number] .1259 1946 Unknown [id number] 20.1.785434.3.579.2 .1244 1946 Unknown [id number] [id number] .1244 Medicare Medicare [id number] Medicare Medicare [id number] Unknown [id number] Social History Date Type Detail Facility Start: 03-19-2023 End: 04-02-2023 Sex Assigned At [employer] Other Start: 03-19-2023 Tobacco smoking status NHIS Smokes tobacco daily [facility] Work Phone: History of tobacco use [facility] Start: 03-19-2023 Tobacco use and exposure Smokeless tobacco non-user [facility] Work Phone: Start: 03-19-2023 End: 09-24-2023 Alcohol intake Current drinker of alcohol (finding) [facility] Work Phone: Start: 03-19-2023 End: 04-02-2023 History of Social function [facility] Work Phone: Start: 03-19-2023 Alcohol Comment once a year maybe [facility] Work Phone: Start: 1945 Sex Assigned At Not on file [facility] Work Phone: Start: 03-09-2023 End: 02-28-2024 Exposure to SARS-CoV-2 (event) Not sure [facility] Start: 1945 Sex Assigned At Male [facility] Start: 03-29-2023 End: 10-16-2023 Tobacco smoking status KSIS Occasional tobacco smoker [facility] History of tobacco use Cigarette Smoker [facility] Start: 04-02-2023 End: 02-12-2024 Alcohol intake Ex-drinker (finding) [facility] Within the last year , have you been afraid of your partner or ex-partner? No [facility] Do you belong to any clubs or organizations such as sikhism groups, unions, fraternal or athletic groups, or [...] smoker [facility] Work Phone: Start: 04-11-2024 Sex Male (finding) [facility] Clinical Notes 03-19-2023 to 02-28-2024 Shobha Lawson MD - 02/28/2024 10:40 AM ESTPatient Kathy Doran NP - 02/12/2024 2:28 PM Ashia Doran NP - 02/12/2024 1:22 PM ESTPatient Instructions Note Date & Type Note Facility 02-28-2024 Note Normal sinus rhythm with poor R wave progression in the anterior lead to 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 documented in this encounter [facility] Work Phone: 02-28-2024 Instructions Geni Lundberg LPN [...] up per routine Lab as scheduled with MA Follow up documented in this encounter [facility] Work Phone: 02-12-2024 History of Present illness Narrative Associated Problem(s): Polyneuropathy Taking Gabapentin 100mg BID prescribed from MA. Reports medication is not effective. Would like [...] Neurology Pt requests no labs until see's MA in March, as they will also be [...] Polyneuropathy Taking Gabapentin 100mg BID prescribed from MA. Reports medication is not effective. Would like to increase dosing, as he does not see MA until Dylon alexandra next year. Agreed to increase dose to 200mg BID at this time. Will evaluate again at next OV. documented in this encounter [facility] 09-24-2023 History of Present illness Narrative Subjective Akil Gonzales is a 78 y.o. male Chief Complaint Follow-up HPI Review of Systems Cardiovascular: Positive for irregular heartbeat. All other systems reviewed and are negative. Patient returns in follow-up of problems as noted. He is labeled as another consult at the request of the MA. For reasons unknown. He is interestingly wearing [...] Rfl: Assessment/Plan 1. 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 documented in this encounter [facility] Work Phone: 09-24-2023 Instructions Carrie Reynoso LPN [...] up per routine documented in this encounter [facility] Work Phone: 04-17-2023 History of Present illness [...] to Urology. Urology documented in this encounter [facility] 03-19-2023 History of Present illness Narrative Cardiology Consultation- New Consult Reason for referral: Ischemic cardiomyopathy with ICD HPI: Akil Gonzales is a 77 y.o. male seen for the above. He is an individual who used to be cared for at the [facility] facility. He actually [place] [facility]. Recently he became disenchanted with care provided there and he goes to the [facility], but does not avail himself of electrophysiologic management in [place]. For this reason he is seen. It [...] this he will be referred to the [facility] for ICD check interrogation and [...] and Plan: 1. 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 Previously [...] direction and in the presence of Rohan Balck MD. 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- Primary Hx of CABG Postsurgical aortocoronary bypass status Cardiomyopathy, ischemic Other specified forms of chronic ischemic heart disease Chronic systolic heart failure (CMS/HCC) Chronic systolic heart failure Mixed hyperlipidemia documented in this encounter [facility] Work Phone: Evaluation noteNo assessment information available [facility] Work Phone: Evaluation note* Diagnosis Sacral lesion- Primary Elevated PSA measurement documented in this encounter [facility]* Diagnosis Chronic bilateral low back [...] esophagitis Esophageal reflux documented in this encounter [facility]* Diagnosis Primary hypertension (CMS/HCC)- Primary [...] idiopathic peripheral neuropathy documented in this encounter [facility]* Diagnosis Primary hypertension (CMS/HCC)- Primary [...] with bilateral sciatica documented in this encounter [facility]* Diagnosis 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 Hx of CABG Postsurgical aortocoronary bypass status Cardiomyopathy, ischemic Other specified forms of chronic ischemic heart disease Chronic systolic heart failure (Multi) Chronic systolic heart failure BMI 27.0-27.9,adult Smoker Tobacco use disorder ICD (implantable cardioverter-defibrillator) in place Mixed hyperlipidemia documented in this encounter [facility] Work Phone: Evaluation note* Diagnosis Multiple vessel coronary artery disease- Primary Cardiomyopathy, ischemic Other specified forms of chronic ischemic heart disease Mixed hyperlipidemia ICD (implantable cardioverter-defibrillator) in place Hx of CABG Postsurgical aortocoronary bypass status Chronic systolic heart failure BMI 27.0-27.9,adult Smoker Tobacco use disorder documented in this encounter [facility] Work Phone: Evaluation note* Diagnosis Primary hypertension [...] esophagitis Esophageal reflux documented in this encounter [facility] Healthcare[facility] general Narrative - Reported* Type Description Date Medical History Arthritis Medical History cataracts Medical History heart disease Medical History high cholesterol Medical History pacemaker Medical History stroke Medical History stent Medical History defibrillator Surgical History lumbar laminectomy decompressio n Surgical History wrist Surgical History bilat hip replacement Hospitalization History see surg Hx [employer] Other reason for referral (narrative)* Consultation (Routine) - Authorized Specialty Diagnoses / Procedures Referred By Contac t Referred To Contact Cardiology Diagnoses 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 Hx of CABG Cardiomyopathy, ischemic Chronic systolic heart failure (CMS/HCC) Procedures Follow Up In Cardiology Rohan Black MD [address] [place] [address], [address] [address] Rohan Black MD [address] [place] [address], [address] [address] Referral ID Status Reason Start Date Expiration Date V isits Requested Visits Authorized Authorized 03/19/2023 03/18/2024 1 1 * Consultation (Routine) - Authorized Specialty Diagnoses / Procedures Referred By Contac t Referred To Contact Cardiology Diagnoses Hx of CABG Cardiomyopathy, ischemic Chronic systolic heart failure (CMS/HCC) Rohan Black MD [address] [place] [address], [address] [address] Referral ID Status Reason Start Date Expiration Date Visits Requested Visits Authorized Authorized Specialty Services Required 03/19/2023 03/18/2024 1 1 * Cardiovascular (Routine) - Pending Review Specialty Diagnoses / Procedures Referred By Contac t Referred To Contact Diagnoses Hx of CABG Chronic systolic heart failure (CMS/HCC) Procedures ECG 12 Lead Rohan Black MD [address] [place] [address], [address] [address] Referral ID Status Reason Start Date Expiration Date V isits Requested Visits Authorized Pending Review 03/19/2023 03/18/2024 1 1 [facility] Work Phone: reason for referral (narrative)* Consultation (Routine) - Pending Review Specialty Diagnoses / Procedures Referred By Contac t Referred To Contact Urology Diagnoses Sacral lesion Elevated PSA measurement Procedures NC OFFICE/OUTPATIENT NEW HIGH MDM 60 MINUTES Shaikh Bonilla MD [address] [place] [address] Arthur Cho MD [address] [place] [address] Referral ID Status Reason Start Date Expiration Date Visits Requested Visits Authorized [id number] Pending Review Specialty Services Required 04/17/2023 10/14/2023 1 1 [facility] Consultation (Routine) - Pending Review Specialty Diagnoses / Procedures Referred By Contac t Referred To Contact Cardiology Diagnoses Cardiomyopathy, ischemic Procedures Follow Up In Cardiology Rohan Black MD [address] [place] [address], [address] [address] Shobha Lawson MD [address] [place] [address] 2, [address] [address] Referral ID Status Reason Start Date Expiration Date V isits Requested Visits Authorized [id number] Pending Review 09/24/2023 09/23/[address] [facility] Work Phone: Summary Purpose Family History [...] affecting left lower extremity (M54.16) Referral Organization [facility] [place] [facility] Referring Provider First Name Nuvia Referring Provider Last Name Alba Referring Provider Specialty Nurse Jackson dickson Referred Organization [facility] Referred Provider SCARLETT [place] Address [address] [facility] [place],[address] Referred Provider Specialty Neurosurgery Referral Priority Routine Additional Source Comments (unrecognized sect ion and content) No Status Records FoundNo Status Records FoundNo Status Records FoundNo Status Records FoundNo Status Records Found INFORMATION SOURCE (unrecogn ized section and content) DATE CREATED AUTHOR [facility]/29/2022 [facility] DATE CREATED AUTHOR AUTHOR'S ORGANIZ ATION 03/24/2024 [facility] DATE CREATED AUTHOR AUTHOR'S ORGANIZ ATION 04/20/2024 [facility] DATE CREATED AUTHOR AUTHOR'S ORGANIZ ATION 05/16/2024 [facility] EPIC DATE CREATED AUTHOR AUTHOR'S ORGANIZ ATION 05/17/2024 [facility] REASON FOR VISIT (unrecogniz ed section and content) Reason Comments New Patient Visit PCM [facility] approval Specialty Diagnoses / Procedures Referred By Contac t Referred To Contact Diagnoses Hx of CABG Chronic systolic heart failure (CMS/HCC) Procedures ECG 12 Lead Rohan Black MD [address] [facility] 2, [place] [address] [place] [id number] Referral ID Status Reason Start Date Expiration Date V isits Requested Visits Authorized [id number] Pending Review 03/19/2023 03/18/2024 1 1 Reason Comments Follow-up Reason Comments Follow-up 6 months VA referral ICD Specialty Diagnoses / Procedures Referred By Contac t Referred To Contact Cardiology Diagnoses 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 Hx of CABG Cardiomyopathy, ischemic Chronic systolic heart failure (Multi) Procedures Follow Up In Cardiology Rohan Black MD [address] [facility] 2, [place] [address] [place] [address] Rohan Black MD [address] [facility] 2, [place] [place] [address] Referral ID Status Reason Start Date Expiration Date V isits Requested Visits Authorized [id number] Authorized 03/19/2023 03/18/2024 1 1 Reason Comments Follow-up 4 month Specialty Diagnoses / Procedures Referred By Contac t Referred To Contact Cardiology Diagnoses Cardiomyopathy, ischemic Procedures Follow Up In Cardiology Rohan Black MD [place]i, MD Shobha [address] [facility] 2, [facility] [address] [place] [address] Phone: tel: fax: Referral ID Status Reason Start Date Expiration Date V isits Requested Visits Authorized [id number] Pending Review 09/24/2023 09/23/2024 1 1 Reason [...] Attending Provider Active Start: April 10, 2024 [employer]ervoir Engineering Manager Relationship Specialty Start Date End Date Shaikh Bonilla MD [address] [place] [address] PCP - General Internal Medicine 03/19/23 Team Status: Inactive Member Role Status Dates Rohan Black MD Attending Provider Active Shaikh Chad MD Primary Care Provider Active Reservoir Engineering Manager Relationship Specialty Start Date End Date Shaikh Bonilla MD [address] [place] [phone] PCP - General Internal Medicine 03/29/23 Reservoir Engineering Manager Relationship Specialty Start Date End Date Shaikh Bonilla MD [address] [place] [phone] PCP - General Internal Medicine 03/29/23 Reservoir Engineering Manager Relationship Specialty Start Date End Date Shaikh Bonilla MD [address] [place] [address] PCP - General Internal Medicine 03/29/23 [employer]ervoir Engineering Manager Relationship Specialty Start Date End Date Chris Quinones MD [address] [place] [address] PCP - General Family Medicine 11/04/23 Mary Doran NP [address] [place] [address] Nurse Practitioner Family Medicine 11/04/23 Reservoir Engineering Manager Relationship Specialty Start Date End Date Chris Quinones MD [address] [place] [phone] PCP - General Family Medicine 11/04/23 Mary Doran NP [address] [place] [address] Nurse Practitioner Family Medicine 11/04/23 Reservoir Engineering Manager Relationship Specialty Start Date End Date Chris Quinones MD [address] [place] [phone] PCP - General Family Medicine 11/04/23 Mary Doran NP [address] [place] [address] Nurse Practitioner Family Medicine 11/04/23 Reservoir Engineering Manager Relationship Specialty Start Date End Date Shaikh Bonilla MD [address] [place] [address] PCP - General Internal Medicine 09/24/23 Reservoir Engineering Manager Relationship Specialty Start Date End Date Mary Doran APRN[facility] [address] [place] [address] PCP - General Family Medicine 02/28/24 [employer]ervoir Engineering Manager Relationship Specialty Start Date End Date Chris Quinones MD [address] [place] [phone] PCP - General Family Medicine 11/04/23 Mary Doran NP [address] [place] [address] Nurse Practitioner Family Medicine 11/04/23 Reservoir Engineering Manager Relationship Specialty Start Date End Date Chris Quinones MD [address] [place] [phone] PCP - General Family Medicine 11/04/23 Mary Doran NP [address] [place] [address] Nurse Practitioner Family Medicine 11/04/23 Goals (unrecognized [...] BE BASED ON THE PRIMARY CLINICAL RECORDS. [facility] [employer] [facility]. provides no warranty or guarantee of the accuracy or completeness of information in this document.
[2024-05-28 11:08] LABS: Creatinine Urine Random 161.83 mg/dL (20.00-300.00); Microalbum Creatinine Ratio Ur 45.7 mg/g (0.0-29.9); Microalbumin Urine Random 7.4 mg/dL (<=30.0)
[2024-05-28 11:31] LABS: Bilirubin Urine NEGATIVE (NEGATIVE); Blood Urine NEGATIVE (NEGATIVE); Clarity Urine CLEAR (CLEAR); Color Urine YELLOW (YELLOW); Glucose Urine UA NEGATIVE (NEGATIVE); Ketones Urine NEGATIVE (NEGATIVE); Leukocyte Esterase Urine NEGATIVE (NEGATIVE); Nitrite Urine NEGATIVE (NEGATIVE); Protein Urine TRACE mg/dL (NEG/TRACE)
[2024-05-28 11:43] LABS: Urine Microscopic Indicated NO
== END 2024-05-28 10:34 | disposition home or self-care (01) ==
LOC: LAB 10:33
PROVIDERS: PCP Nurse Practitioner; Visit Provider Nurse Practitioner
DX: E78.2 Mixed hyperlipidemia (principal); G62.9 Polyneuropathy, unspecified; I25.10 Atherosclerotic heart disease of native coronary artery without angina pectoris; I50.22 Chronic systolic (congestive) heart failure; Z12.5 Encounter for screening for malignant neoplasm of prostate; I11.0 Hypertensive heart disease with heart failure
CPT/HCPCS: 81003; 82043; 82570